=== PATIENT | female | born 1930 | race Caucasian/White ===

== ENCOUNTER 2017-03-18 18:26 | Emergency (ER) | payer MEDICARE, MEDICAID ==
[2017-03-18 19:36] LABS: BASOPHILS 0.8 % (0-2); EOSINOPHILS 2.3 % (0-7); HEMATOCRIT 35.6 % (36.0-48.0); HEMOGLOBIN 12.2 g/dL (12-16); IMMATURE GRANULOCYTES 0.2 % (0-5); LYMPHOCYTES 23.4 % (15-50); MCH 30.7 pg (26.0-34.0); MCHC 34.3 g/dL (31.0-37.0); MCV 89.7 fL (80.0-100.0); MEAN PLATELET VOLUME 9.9 fL (7.4-10.4); MONOCYTES 7.8 % (2-11); NEUTROPHILS 65.5 % (40-80); PLATELET COUNT 200 10x3/uL (130-400); RBC 3.97 10x6/uL (4.00-5.40); WBC 5.1 10x3/uL (4.8-10.8)
[2017-03-18 20:04] LABS: APPEARANCE CLEAR (CLEAR); BILIRUBIN NEGATIVE (NEGATIVE); COLOR YELLOW (YELLOW); GLUCOSE NEGATIVE (NEGATIVE); KETONE NEGATIVE (NEGATIVE); NITRITE NEGATIVE (NEGATIVE); PROTEIN NEGATIVE (NEGATIVE); UROBILINOGEN NORMAL (NORMAL)
[2017-03-18 20:22] LABS: ALKALINE PHOSPHATASE 77 U/L (46-116); ALT (SGPT) 29 U/L (10-68); BILIRUBIN - TOTAL 0.31 mg/dL (0.2-1.3); CALC OSMOLALITY 284 mosm/kg (275-300); CALCIUM 9.4 mg/dL (8.5-10.1); CARBON DIOXIDE 27.2 mmol/L (21.0-32.0); CHLORIDE - SERUM 103 mmol/L (98-107); CREATININE - SERUM 0.9 mg/dL (0.6-1.3); GLUCOSE 101 mg/dL (74-106); POTASSIUM - SERUM 3.7 mmol/L (3.5-5.1); PROTEIN - SERUM 7.8 g/dL (6.4-8.2); SODIUM 142 mmol/L (136-145); UREA NITROGEN 17 mg/dL (7-18); eGFR NON AFRICAN AMERICAN 63 mL/min (90-120)
[2017-03-18 20:37] LABS: CKMB 0.9 U/L (0.0-3.6); CREATINE KINASE 249 UL (21-215); PRO BNP 714 pg/mL (0-450)
[2017-03-18 20:48] LABS: TROPONIN-I < 0.017 ng/mL (0.000-0.060)
== END 2017-03-18 20:38 | disposition home or self-care (01) ==
LOC: D.ER 18:26
PROVIDERS: Family Medicine
DX: R07.89 Other chest pain (principal); G35 Multiple sclerosis; I10 Essential (primary) hypertension; Z85.3 Personal history of malignant neoplasm of breast; I48.92 Unspecified atrial flutter

== ENCOUNTER 2017-03-26 15:57 | Emergency (ER) | payer MEDICARE, MEDICAID | END 2017-03-26 18:29 | disposition home or self-care (01) | LOC: D.ER 15:57 | DX: M25.552 Pain in left hip (principal); I10 Essential (primary) hypertension; G35 Multiple sclerosis; Z85.3 Personal history of malignant neoplasm of breast ==

== ENCOUNTER 2017-03-27 20:10 | Emergency (ER) | payer MEDICARE, MEDICAID ==
[2017-03-27 20:37] LABS: BASOPHILS 0.6 % (0-2); EOSINOPHILS 2.9 % (0-7); HEMATOCRIT 36.6 % (36.0-48.0); HEMOGLOBIN 12.1 g/dL (12-16); IMMATURE GRANULOCYTES 0.3 % (0-5); LYMPHOCYTES 29.8 % (15-50); MCHC 33.1 g/dL (31.0-37.0); MCV 90.6 fL (80.0-100.0); MEAN PLATELET VOLUME 9.9 fL (7.4-10.4); MONOCYTES 14.2 % (2-11); NEUTROPHILS 52.2 % (40-80); PLATELET COUNT 179 10x3/uL (130-400); RBC 4.04 10x6/uL (4.00-5.40); RDW 13.2 % (11.5-14.5); WBC 3.1 10x3/uL (4.8-10.8)
[2017-03-27 20:57] LABS: ALBUMIN 3.9 g/dL (3.4-5.0); ALKALINE PHOSPHATASE 78 U/L (46-116); ALT (SGPT) 35 U/L (10-68); BILIRUBIN - TOTAL 0.26 mg/dL (0.2-1.3); CALC OSMOLALITY 277 mosm/kg (275-300); CALCIUM 9.1 mg/dL (8.5-10.1); CARBON DIOXIDE 27.6 mmol/L (21.0-32.0); CHLORIDE - SERUM 102 mmol/L (98-107); CREATININE - SERUM 0.8 mg/dL (0.6-1.3); GLUCOSE 100 mg/dL (74-106); POTASSIUM - SERUM 3.8 mmol/L (3.5-5.1); PROTEIN - SERUM 7.8 g/dL (6.4-8.2); SODIUM 139 mmol/L (136-145); UREA NITROGEN 13 mg/dL (7-18); eGFR NON AFRICAN AMERICAN 72 mL/min (90-120)
[2017-03-27 21:01] LABS: CHOL - HDL RATIO 6.2 ratio (2.3-4.1); CHOLESTEROL, TOTAL 323 mg/dL (0-200); CKMB 0.7 U/L (0.0-3.6); CREATINE KINASE 239 UL (21-215); HDL CHOLESTEROL 52 mg/dL (32-96); LDL CHOLESTEROL 244 mg/dL (0-100); LDL-HDL RATIO 4.7 ratio (1.5-3.5); TRIGLYCERIDE 136 mg/dL (30-200)
[2017-03-27 21:10] LABS: TROPONIN-I < 0.017 ng/mL (0.000-0.060)
[2017-03-27 21:50] LABS: APPEARANCE CLEAR (CLEAR); BILIRUBIN NEGATIVE (NEGATIVE); COLOR STRAW (YELLOW); GLUCOSE NEGATIVE (NEGATIVE); KETONE NEGATIVE (NEGATIVE); NITRITE NEGATIVE (NEGATIVE); PROTEIN NEGATIVE (NEGATIVE); SPECIFIC GRAVITY 1.005 (1.005-1.020); UROBILINOGEN NORMAL (NORMAL)
[2017-03-27 21:53] LABS: UDS - AMPHET NEGATIVE QUAL (NEGATIVE); UDS - BARB NEGATIVE QUAL (NEGATIVE); UDS - BENZO NEGATIVE QUAL (NEGATIVE); UDS - COCAINE NEGATIVE QUAL (NEGATIVE); UDS - OPIATE NEGATIVE QUAL (NEGATIVE); UDS - PCP NEGATIVE QUAL (NEGATIVE); UDS - THC NEGATIVE QUAL (NEGATIVE)
== END 2017-03-27 22:58 | disposition home or self-care (01) ==
LOC: D.ER 20:10
PROVIDERS: Family Medicine; Physician Assistant
DX: R07.9 Chest pain, unspecified (principal); R05 Cough; R06.2 Wheezing; I10 Essential (primary) hypertension; Z86.79 Personal history of other diseases of the circulatory system; G35 Multiple sclerosis; Z85.3 Personal history of malignant neoplasm of breast

== ENCOUNTER 2017-05-18 05:28 | Emergency (ER) | payer MEDICARE, MEDICAID ==
[2017-05-18 06:03] LABS: BASOPHILS 0.8 % (0-2); EOSINOPHILS 4.7 % (0-7); HEMATOCRIT 35.1 % (36.0-48.0); HEMOGLOBIN 11.9 g/dL (12-16); IMMATURE GRANULOCYTES 0.4 % (0-5); LYMPHOCYTES 36.3 % (15-50); MCH 30.1 pg (26.0-34.0); MCHC 33.9 g/dL (31.0-37.0); MCV 88.9 fL (80.0-100.0); MONOCYTES 8.7 % (2-11); NEUTROPHILS 49.1 % (40-80); PLATELET COUNT 190 10x3/uL (130-400); RBC 3.95 10x6/uL (4.00-5.40); RDW 13.2 % (11.5-14.5); WBC 4.9 10x3/uL (4.8-10.8)
[2017-05-18 06:20] LABS: ALKALINE PHOSPHATASE 67 U/L (46-116); ALT (SGPT) 28 U/L (10-68); CALC OSMOLALITY 279 mosm/kg (275-300); CALCIUM 9.4 mg/dL (8.5-10.1); CHLORIDE - SERUM 102 mmol/L (98-107); CREATININE - SERUM 0.9 mg/dL (0.6-1.3); GLUCOSE 101 mg/dL (74-106); POTASSIUM - SERUM 3.4 mmol/L (3.5-5.1); PROTEIN - SERUM 7.9 g/dL (6.4-8.2); SODIUM 139 mmol/L (136-145); UREA NITROGEN 17 mg/dL (7-18); eGFR NON AFRICAN AMERICAN 63 mL/min (90-120)
[2017-05-18 06:29] LABS: AMYLASE - SERUM 57 U/L (25-115); CKMB 1.3 U/L (0.0-3.6); CREATINE KINASE 222 UL (21-215); LIPASE 90 U/L (73-393)
[2017-05-18 06:30] LABS: TROPONIN-I < 0.017 ng/mL (0.000-0.060)
[2017-05-18 07:17] LABS: APPEARANCE CLEAR (CLEAR); BILIRUBIN NEGATIVE (NEGATIVE); COLOR STRAW (YELLOW); GLUCOSE NEGATIVE (NEGATIVE); KETONE NEGATIVE (NEGATIVE); NITRITE NEGATIVE (NEGATIVE); PROTEIN NEGATIVE (NEGATIVE); SPECIFIC GRAVITY 1.005 (1.005-1.020); UROBILINOGEN NORMAL (NORMAL)
[2017-05-19 11:00] VITALS: BMI 19.8
[2017-05-19] MEDS ORDERED: LOPRESSOR25 MG PO (15:45)
[2017-05-19] MEDS ORDERED: SYNTHROID50 MCG PO (15:45)
[2017-05-19] MEDS ORDERED: XANAX0.25 MG PO (15:46)
[2017-05-19] MEDS ORDERED: PLAVIX75 MG PO (15:46)
[2017-05-19] MEDS ORDERED: LISINOPRIL10 MG PO (15:47)
== END 2017-05-18 09:10 | disposition left against medical advice (07) ==
LOC: D.ER 05:28
PROVIDERS: Family Medicine
DX: N20.2 Calculus of kidney with calculus of ureter (principal); I10 Essential (primary) hypertension; G35 Multiple sclerosis

== ENCOUNTER 2017-05-18 16:48 | Inpatient (IN) | payer MEDICARE, MEDICAID ==
[~2017-05-18] VITALS: Ht 160 cm; Wt 50.7 kg
--- NOTE | ~2017-05-18 | CN ---
PATIENT NAME:ALEN BUENO MEDICAL RECORD: [id number] : 34 LOCATION:. D.2112 ADMIT DATE: 05/18/17 ACCOUNT: [id number] CONSULTING PHYSICIAN: MATT GARSIA MD REFERRING PHYSICIAN: SWAPNIL LEBRON MD DATE OF CONSULTATION: 05/19/2017 CONSULT REQUESTING PHYSICIAN: Dr. Swapnil Lebron. REASON FOR CONSULTATION: Bilateral pulmonary nodule and pneumonia. HISTORY OF PRESENT ILLNESS: Ms. Bueno is an 87-year-old female who has recently moved from [place], [place] to [place]. According to the patient, 4-5 years ago, she was diagnosed with some lung nodule. She underwent lung biopsy at [facility] and according to the patient, it was turned out to be pneumonia, no cancer. Now, she presented to the hospital with uncontrolled blood pressure and generalized weakness. CT scan of her chest showed that she has obstructive ureteric stone on the right with hydronephrosis. She is seen by Dr. Mera. Denies any fever or chill. No night sweats. REVIEW OF SYSTEMS: Mainly in the history of present illness. PAST MEDICAL HISTORY: 1. History of pulmonary nodule 5 years ago, diagnosed in [place] in [place]. 2. History of breast cancer, status post chemoradiation and partial mastectomy. 3. Coronary artery disease with multiple stenting. 4. Anxiety. 5. Hypothyroidism. 6. Hypertension, uncontrolled. ALLERGIES: She is allergic to IODINE, SULFA, AMOXICILLIN, ASPIRIN, BACLOFEN, CIPRO, CODEINE, INDOMETHACIN, LATEX, MORPHINE, PROCAINE, TETANUS, and DIPHTHERIA TOXOID. PERSONAL SOCIAL HISTORY: The patient is a nonsmoker, nondrinker. FAMILY HISTORY: None known. PHYSICAL EXAMINATION: GENERAL: Now, the patient is sitting in bed. She was brought back while the patient was trying to get out from the hospital. VITAL SIGNS: The blood pressure is 156/50, pulse is 56, respirations 16, temperature is 97.9, and SpO2 is 96% on room air. HEENT: Conjunctivae pink. Sclerae nonicteric. NECK: Neck is supple. No JVD. CHEST: The chest excursion is minimal. No basal crackles. No wheezing. HEART: Rhythm regular, normal sound, no murmur. ABDOMEN: Abdomen is soft. Bowel sounds present. No hepatosplenomegaly. RECTAL: Deferred. EXTREMITIES: No cyanosis, no clubbing, and no pedal edema. SKIN: The skin is warm, normal turgor. CENTRAL NERVOUS SYSTEM: The patient is awake and alert. There is no obvious cranial nerve abnormality. The gait is normal. IMAGING: CT scan of the chest on 05/18/2017, there are several spiculated CONSULT REPORT [id number] ALEN BUENO E opacities in the left lung measuring 2.1 cm. There is also ground-glass opacity in the right lung base. There is a 6-mm obstructing right ureteral calculus resulting in hydronephrosis. Borderline precarinal lymph node. IMPRESSION: 1. Multilobar pneumonia, rule out aspiration pneumonia, possible community-acquired pneumonia. 2. Multiple pulmonary nodules, rule out malignant process. According to the patient, she does have a lung biopsy 5 years ago at [place] and she was told that it was not a cancer. 3. Right hydronephrosis. 4. Right obstructive ureteral stone. 5. History of cancer of the breast. 6. Anxiety. RECOMMENDATION: 1. Continue empiric Rocephin and Zithromax. 2. We will get her medical record from [facility] and the patient will need outpatient PET scan. Dr. Lebron, thank you for involving me in the care of Ms. Bueno. TRANSINT:[id number] Voice Confirmation ID: [id number] DOCUMENT ID: [id number] MATT GARSIA MD at 1340 CC: SWAPNIL LEBRON [phone] DICTATION DATE: 05/19/171745 VOCATIONAL TECHNICAL EDUCATION DIRECTOR: 05/19/171919 DIS IN 05/22/17 [facility] [address] [place] [address]
[2017-05-18 17:51] LABS: BASOPHILS 0.4 % (0-2); EOSINOPHILS 2.2 % (0-7); HEMATOCRIT 32.1 % (36.0-48.0); HEMOGLOBIN 10.8 g/dL (12-16); IMMATURE GRANULOCYTES 0.2 % (0-5); LYMPHOCYTES 20.2 % (15-50); MCHC 33.6 g/dL (31.0-37.0); MCV 89.2 fL (80.0-100.0); MONOCYTES 8.4 % (2-11); NEUTROPHILS 68.6 % (40-80); PLATELET COUNT 174 10x3/uL (130-400); RDW 13.2 % (11.5-14.5)
[2017-05-18 18:12] LABS: ALBUMIN 3.7 g/dL (3.4-5.0); ANION GAP 12.7 mmol/L (8-16); BILIRUBIN - TOTAL 0.46 mg/dL (0.2-1.3); CARBON DIOXIDE 27.2 mmol/L (21.0-32.0); CREATININE - SERUM 0.9 mg/dL (0.6-1.3); POTASSIUM - SERUM 3.9 mmol/L (3.5-5.1); PROTEIN - SERUM 7.2 g/dL (6.4-8.2)
[2017-05-19 02:11] VITALS: BP 175/54; BMI 19.8
[2017-05-19 04:00] VITALS: BP 173/65
[2017-05-19 09:15] VITALS: BP 93/33
[2017-05-19 10:44] VITALS: BMI 19.5
[2017-05-19 11:00] VITALS: Ht 160 cm; Wt 50.7 kg
[2017-05-19 11:39] VITALS: BP 156/50
[2017-05-19] MEDS ORDERED: SYNTHROID50 MCG PO (15:45)
[2017-05-19] MEDS ORDERED: LOPRESSOR25 MG PO (15:45)
[2017-05-19] MEDS ORDERED: XANAX0.25 MG PO (15:46)
[2017-05-19] MEDS ORDERED: PLAVIX75 MG PO (15:46)
[2017-05-19] MEDS ORDERED: LISINOPRIL10 MG PO (15:47)
[2017-05-19 16:43] VITALS: BP 176/52
[2017-05-19 20:00] VITALS: BP 162/39
[2017-05-20] VITALS: BP 202/82
[2017-05-20 04:00] VITALS: BP 205/69
[2017-05-20 06:32] LABS: BASOPHILS 0.2 % (0-2); EOSINOPHILS 1.2 % (0-7); HEMATOCRIT 32.4 % (36.0-48.0); IMMATURE GRANULOCYTES 0.7 % (0-5); LYMPHOCYTES 12.7 % (15-50); MCH 29.7 pg (26.0-34.0); MCV 87.6 fL (80.0-100.0); MONOCYTES 4.8 % (2-11); NEUTROPHILS 80.4 % (40-80); PLATELET COUNT 183 10x3/uL (130-400); RDW 12.9 % (11.5-14.5); WBC 4.2 10x3/uL (4.8-10.8)
[2017-05-20 07:09] LABS: ALBUMIN 3.7 g/dL (3.4-5.0); ANION GAP 14.5 mmol/L (8-16); BILIRUBIN - TOTAL 0.5 mg/dL (0.2-1.3); CALCIUM 8.7 mg/dL (8.5-10.1); CARBON DIOXIDE 24.2 mmol/L (21.0-32.0); CREATININE - SERUM 0.9 mg/dL (0.6-1.3); POTASSIUM - SERUM 3.7 mmol/L (3.5-5.1); PROTEIN - SERUM 7.5 g/dL (6.4-8.2)
[2017-05-20 07:30] VITALS: BP 131/71
[2017-05-20 10:30] VITALS: BP 142/48
[2017-05-20 13:03] VITALS: BP 164/65
[2017-05-20 15:43] VITALS: BP 196/73
[2017-05-21 01:18] VITALS: BP 193/68
[2017-05-21 06:37] VITALS: BP 181/63
[2017-05-21 07:23] LABS: BASOPHILS 0 % (0-2); EOSINOPHILS 0 % (0-7); HEMATOCRIT 32.2 % (36.0-48.0); HEMOGLOBIN 11.1 g/dL (12-16); IMMATURE GRANULOCYTES 0.4 % (0-5); LYMPHOCYTES 11.9 % (15-50); MCH 29.4 pg (26.0-34.0); MCHC 34.5 g/dL (31.0-37.0); MCV 85.4 fL (80.0-100.0); MEAN PLATELET VOLUME 10.4 fL (7.4-10.4); MONOCYTES 0.6 % (2-11); NEUTROPHILS 87.1 % (40-80); PLATELET COUNT 187 10x3/uL (130-400); RBC 3.77 10x6/uL (4.00-5.40); RDW 12.7 % (11.5-14.5)
[2017-05-21 07:28] LABS: ALBUMIN 3.8 g/dL (3.4-5.0); ANION GAP 16.3 mmol/L (8-16); BILIRUBIN - TOTAL 0.7 mg/dL (0.2-1.3); CALCIUM 8.4 mg/dL (8.5-10.1); CARBON DIOXIDE 21.3 mmol/L (21.0-32.0); CREATININE - SERUM 0.8 mg/dL (0.6-1.3); POTASSIUM - SERUM 3.6 mmol/L (3.5-5.1); PROTEIN - SERUM 7.4 g/dL (6.4-8.2)
[2017-05-21 08:44] VITALS: BP 175/73
[2017-05-21 11:49] VITALS: BP 188/66
[2017-05-21 19:00] VITALS: BP 181/97
[2017-05-21 23:28] LABS: APPEARANCE CLEAR (CLEAR); BILIRUBIN NEGATIVE (NEGATIVE); COLOR YELLOW (YELLOW); GLUCOSE NEGATIVE (NEGATIVE); KETONE NEGATIVE (NEGATIVE); NITRITE NEGATIVE (NEGATIVE); PROTEIN NEGATIVE (NEGATIVE); UROBILINOGEN NORMAL (NORMAL)
[2017-05-22] VITALS: BP 161/63
[2017-05-22 04:00] VITALS: BP 156/35
[2017-05-22 05:10] LABS: BASOPHILS 0 % (0-2); EOSINOPHILS 0.1 % (0-7); HEMATOCRIT 30.1 % (36.0-48.0); HEMOGLOBIN 10.5 g/dL (12-16); IMMATURE GRANULOCYTES 0.3 % (0-5); LYMPHOCYTES 13.8 % (15-50); MCH 29.7 pg (26.0-34.0); MCHC 34.9 g/dL (31.0-37.0); MEAN PLATELET VOLUME 10.3 fL (7.4-10.4); NEUTROPHILS 77.8 % (40-80); PLATELET COUNT 168 10x3/uL (130-400); RBC 3.54 10x6/uL (4.00-5.40); RDW 12.6 % (11.5-14.5)
[2017-05-22 05:14] LABS: WBC 9.1 10x3/uL (4.8-10.8)
[2017-05-22 05:27] LABS: ALBUMIN 3.5 g/dL (3.4-5.0); BILIRUBIN - TOTAL 0.4 mg/dL (0.2-1.3); CALCIUM 8.1 mg/dL (8.5-10.1); CARBON DIOXIDE 22.8 mmol/L (21.0-32.0); CREATININE - SERUM 0.8 mg/dL (0.6-1.3); POTASSIUM - SERUM 3.8 mmol/L (3.5-5.1); PROTEIN - SERUM 6.8 g/dL (6.4-8.2)
[2017-05-22 08:26] VITALS: BP 173/40
[2017-05-22 11:37] VITALS: BP 155/56
[2017-05-22] MEDS ORDERED: FLOMAX0.4 MG PO (16:13)
[2017-05-26 19:12] LABS: FUNGAL - ASP FLAVUS Negative (Neg:<1:1); FUNGAL - ASP NIGER Negative (Neg:<1:1); FUNGAL - ASPER FUMIGATUS Negative (Neg:<1:1)
== END 2017-05-22 16:25 | disposition home or self-care (01) | DRG 178 ==
LOC: D.ER 16:48 → D.M2 18:02 → D.EDHOLD 18:02 → D.M2 19:42
PROVIDERS: Emergency Medicine; Family Medicine; Internal Medicine Pulmonary Disease
DX: J69.0 Pneumonitis due to inhalation of food and vomit (principal); N13.2 Hydronephrosis with renal and ureteral calculous obstruction; R00.2 Palpitations; I25.10 Atherosclerotic heart disease of native coronary artery without angina pectoris; F41.9 Anxiety disorder, unspecified; E03.9 Hypothyroidism, unspecified; I16.0 Hypertensive urgency

== ENCOUNTER → 2017-06-21 16:15 | Outpatient (CLI) | payer MEDICARE, MEDICAID ==
[2017-05-19 11:00] VITALS: BMI 19.8
[~2017-06-21 16:15] MED LIST: FLOMAX0.4 MG PO; LISINOPRIL10 MG PO; LOPRESSOR25 MG PO; PLAVIX75 MG PO; SYNTHROID50 MCG PO; XANAX0.25 MG PO
== END | disposition home or self-care (01) ==
LOC: D.RAD 16:15
DX: N20.0 Calculus of kidney (principal)

== ENCOUNTER → 2017-07-01 09:59 | Outpatient (CLI) | payer MEDICARE, MEDICAID ==
[2017-05-19 11:00] VITALS: BMI 19.8
== END | disposition home or self-care (01) ==
LOC: D.CT 09:59
DX: N20.9 Urinary calculus, unspecified (principal)

== ENCOUNTER 2017-07-13 16:01 | Emergency (ER) | payer MEDICARE, MEDICAID ==
[2017-05-19 11:00] VITALS: BMI 19.8
== END 2017-07-13 18:20 | disposition home or self-care (01) ==
LOC: D.ER 16:01
DX: L30.1 Dyshidrosis [pompholyx] (principal); I10 Essential (primary) hypertension; Z85.3 Personal history of malignant neoplasm of breast; G35 Multiple sclerosis

== ENCOUNTER 2017-07-31 21:13 | Emergency (ER) | payer MEDICARE, MEDICAID ==
[2017-05-19 11:00] VITALS: BMI 19.8
== END 2017-07-31 22:51 | disposition home or self-care (01) ==
LOC: D.ER 21:13
DX: M79.602 Pain in left arm (principal); S49.92XA Unspecified injury of left shoulder and upper arm, initial encounter; W22.8XXA Striking against or struck by other objects, initial encounter; Y93.89 Activity, other specified; Y92.019 Unspecified place in single-family (private) house as the place of occurrence of the external cause; S40.861A Insect bite (nonvenomous) of right upper arm, initial encounter; I10 Essential (primary) hypertension; G35 Multiple sclerosis

== ENCOUNTER 2017-09-03 15:52 | Emergency (ER) | payer MEDICARE, MEDICAID ==
[~2017-09-03] VITALS: Ht 160 cm; Wt 50.0 kg
[2017-09-03 16:05] VITALS: Ht 160 cm; Wt 50.0 kg
[2017-09-03 16:23] VITALS: BP 205/84
[2017-09-04] MEDS ORDERED: ACETAMINOPHEN500 M1 PO (04:01)
[2017-09-04] MEDS ORDERED: CYCLOBENZAPRINE10 MG PO (04:01)
[2017-09-04] MEDS ORDERED: ZPAK PO (06:41)
[2017-09-04] MEDS ORDERED: OMNICEF300 MG PO (06:41)
== END 2017-09-03 16:40 | disposition left against medical advice (07) ==
LOC: D.ER 15:52
DX: M79.1 Myalgia (principal)

== ENCOUNTER 2017-09-04 03:25 | Emergency (ER) | payer MEDICARE, MEDICAID ==
[~2017-09-04] VITALS: Ht 160 cm; Wt 504.5 kg
[2017-09-04 03:25] VITALS: Ht 160 cm; Wt 504.5 kg
[2017-09-04] MEDS ORDERED: CYCLOBENZAPRINE10 MG PO (04:01)
[2017-09-04] MEDS ORDERED: ACETAMINOPHEN500 M1 PO (04:01)
[2017-09-04 04:28] VITALS: BP 172/84
[2017-09-04 05:13] LABS: BASOPHILS 0.5 % (0-2); EOSINOPHILS 4.5 % (0-7); HEMATOCRIT 36.7 % (36.0-48.0); HEMOGLOBIN 12.7 g/dL (12-16); IMMATURE GRANULOCYTES 0.2 % (0-5); LYMPHOCYTES 38.9 % (15-50); MCH 30.3 pg (26.0-34.0); MCHC 34.6 g/dL (31.0-37.0); MCV 87.6 fL (80.0-100.0); MEAN PLATELET VOLUME 9.6 fL (7.4-10.4); MONOCYTES 8.2 % (2-11); NEUTROPHILS 47.7 % (40-80); RBC 4.19 10x6/uL (4.00-5.40); RDW 13.1 % (11.5-14.5); WBC 5.5 10x3/uL (4.8-10.8)
[2017-09-04 05:18] LABS: PLATELET COUNT 202 10x3/uL (130-400)
[2017-09-04 05:24] LABS: INR 0.93 (0.85-1.17); PROTIME 12.1 SECONDS (11.6-15.0)
[2017-09-04 05:34] LABS: ALKALINE PHOSPHATASE 69 U/L (46-116); ALT (SGPT) 20 U/L (10-68); CALC OSMOLALITY 277 mosm/kg (275-300); CALCIUM 9.2 mg/dL (8.5-10.1); CARBON DIOXIDE 29.7 mmol/L (21.0-32.0); CHLORIDE - SERUM 105 mmol/L (98-107); CREATININE - SERUM 0.9 mg/dL (0.6-1.3); GLUCOSE 93 mg/dL (74-106); POTASSIUM - SERUM 3.6 mmol/L (3.5-5.1); PROTEIN - SERUM 7.8 g/dL (6.4-8.2); SODIUM 140 mmol/L (136-145); UREA NITROGEN 10 mg/dL (7-18); eGFR NON AFRICAN AMERICAN 63 mL/min (90-120)
[2017-09-04 05:35] LABS: TROPONIN-I < 0.017 ng/mL (0.000-0.060)
[2017-09-04 06:20] LABS: APPEARANCE CLEAR (CLEAR); BILIRUBIN NEGATIVE (NEGATIVE); COLOR YELLOW (YELLOW); GLUCOSE NEGATIVE (NEGATIVE); KETONE NEGATIVE (NEGATIVE); NITRITE NEGATIVE (NEGATIVE); PROTEIN NEGATIVE (NEGATIVE); UROBILINOGEN NORMAL (NORMAL)
[2017-09-04] MEDS ORDERED: ZPAK PO (06:41)
[2017-09-04] MEDS ORDERED: OMNICEF300 MG PO (06:41)
== END 2017-09-04 07:20 | disposition home or self-care (01) ==
LOC: D.ER 03:25
PROVIDERS: Family Medicine
DX: M79.1 Myalgia (principal)

== ENCOUNTER 2017-10-20 21:52 | Emergency (ER) | payer MEDICARE, MEDICAID ==
[~2017-10-20] VITALS: Ht 160 cm; Wt 61.4 kg
[~2017-10-20 21:52] MED LIST changes: +ACETAMINOPHEN500 M1 PO; +CYCLOBENZAPRINE10 MG PO; +OMNICEF300 MG PO; +ZPAK PO
[2017-10-20 21:57] VITALS: BP 231/120; Ht 160 cm; Wt 61.4 kg
== END 2017-10-20 23:18 ==
LOC: D.ER 21:52
DX: S50.311A Abrasion of right elbow, initial encounter (principal); S90.511A Abrasion, right ankle, initial encounter; W01.0XXA Fall on same level from slipping, tripping and stumbling without subsequent striking against object, initial encounter; Y93.K1 Activity, walking an animal; Y92.410 Unspecified street and highway as the place of occurrence of the external cause; S16.1XXA Strain of muscle, fascia and tendon at neck level, initial encounter; S09.90XA Unspecified injury of head, initial encounter; E07.9 Disorder of thyroid, unspecified; I10 Essential (primary) hypertension; I25.10 Atherosclerotic heart disease of native coronary artery without angina pectoris; G35 Multiple sclerosis

== ENCOUNTER 2017-10-23 00:01 | Emergency (ER) | payer MEDICARE ==
[~2017-10-23] VITALS: Ht 160 cm; Wt 50.5 kg
[2017-10-23 00:02] VITALS: Ht 160 cm; Wt 50.5 kg
[2017-10-23 02:20] VITALS: BP 123/79
== END 2017-10-23 02:20 | disposition home or self-care (01) ==
LOC: D.ER 00:01
DX: R51 Headache (principal); M54.2 Cervicalgia; M54.6 Pain in thoracic spine; E07.9 Disorder of thyroid, unspecified; I10 Essential (primary) hypertension; I25.10 Atherosclerotic heart disease of native coronary artery without angina pectoris; W18.30XA Fall on same level, unspecified, initial encounter; Y93.89 Activity, other specified; Y92.019 Unspecified place in single-family (private) house as the place of occurrence of the external cause

== ENCOUNTER 2017-12-18 03:33 | Emergency (ER) | payer MEDICARE ==
[~2017-12-18] VITALS: Ht 160 cm; Wt 53.2 kg
[2017-12-18 03:37] VITALS: Ht 160 cm; Wt 53.2 kg
[2017-12-18 04:22] VITALS: BP 178/84
== END 2017-12-18 04:23 | disposition home or self-care (01) ==
LOC: D.ER 03:33
DX: S60.465A Insect bite (nonvenomous) of left ring finger, initial encounter (principal); W57.XXXA Bitten or stung by nonvenomous insect and other nonvenomous arthropods, initial encounter; Y93.89 Activity, other specified; Y92.019 Unspecified place in single-family (private) house as the place of occurrence of the external cause; I10 Essential (primary) hypertension; G35 Multiple sclerosis; I25.10 Atherosclerotic heart disease of native coronary artery without angina pectoris

== ENCOUNTER 2018-01-27 13:41 | Emergency (ER) | payer MEDICARE ==
[~2018-01-27] VITALS: Ht 160 cm; Wt 53.2 kg
[2018-01-27 13:51] VITALS: Ht 160 cm; Wt 53.2 kg
[2018-01-27 14:56] LABS: BASOPHILS 0.5 % (0-2); EOSINOPHILS 1.6 % (0-7); HEMATOCRIT 37.9 % (36.0-48.0); HEMOGLOBIN 13.1 g/dL (12-16); IMMATURE GRANULOCYTES 0.5 % (0-5); LYMPHOCYTES 19.5 % (15-50); MCH 30.4 pg (26.0-34.0); MCHC 34.6 g/dL (31.0-37.0); MCV 87.9 fL (80.0-100.0); MEAN PLATELET VOLUME 9.6 fL (7.4-10.4); MONOCYTES 6.2 % (2-11); NEUTROPHILS 71.7 % (40-80); PLATELET COUNT 214 10x3/uL (130-400); RBC 4.31 10x6/uL (4.00-5.40); RDW 12.9 % (11.5-14.5); WBC 6.3 10x3/uL (4.8-10.8)
[2018-01-27 15:13] LABS: INR 0.91 (0.85-1.17)
[2018-01-27 15:14] LABS: APTT 29.5 SECONDS (22.8-39.4)
[2018-01-27 15:19] LABS: ALKALINE PHOSPHATASE 73 U/L (46-116); ALT (SGPT) 18 U/L (10-68); BILIRUBIN - TOTAL 0.42 mg/dL (0.2-1.3); CALC OSMOLALITY 276 mosm/kg (275-300); CALCIUM 9.4 mg/dL (8.5-10.1); CARBON DIOXIDE 27.5 mmol/L (21.0-32.0); CHLORIDE - SERUM 104 mmol/L (98-107); CREATININE - SERUM 0.8 mg/dL (0.6-1.3); GLUCOSE 102 mg/dL (74-106); POTASSIUM - SERUM 3.8 mmol/L (3.5-5.1); PROTEIN - SERUM 7.9 g/dL (6.4-8.2); SODIUM 139 mmol/L (136-145); UREA NITROGEN 9 mg/dL (7-18); eGFR NON AFRICAN AMERICAN 72 mL/min (90-120)
[2018-01-27 15:34] LABS: CKMB 0.8 U/L (0.0-3.6); CREATINE KINASE 106 UL (21-215); MAGNESIUM - SERUM 2.2 mg/dL (1.8-2.4)
[2018-01-27 15:37] LABS: TROPONIN-I < 0.017 ng/mL (0.000-0.060)
[2018-01-27 16:33] VITALS: BP 208/112
== END 2018-01-27 18:28 | disposition home or self-care (01) ==
LOC: D.ER 13:41
PROVIDERS: Family Medicine
DX: R53.83 Other fatigue (principal); F41.9 Anxiety disorder, unspecified; I10 Essential (primary) hypertension; F41.0 Panic disorder [episodic paroxysmal anxiety]; M79.604 Pain in right leg; R00.2 Palpitations

== ENCOUNTER 2018-02-19 16:35 | Emergency (ER) | payer MEDICARE | END 2018-02-19 17:51 | disposition home or self-care (01) | LOC: D.ER 16:35 | DX: B02.29 Other postherpetic nervous system involvement (principal); Z86.19 Personal history of other infectious and parasitic diseases ==

== ENCOUNTER 2018-03-19 17:37 | Emergency (ER) | payer MEDICARE ==
[~2018-03-19] VITALS: Ht 160 cm; Wt 45.5 kg
[~2018-03-19 17:37] MED LIST changes: +PREDNISONE20 MG PO; +ZOVIRAX800 MG PO
[2018-03-19 17:45] VITALS: Ht 160 cm; Wt 45.5 kg
[2018-03-19 18:06] LABS: APPEARANCE CLEAR (CLEAR); BILIRUBIN NEGATIVE (NEGATIVE); COLOR STRAW (YELLOW); GLUCOSE NEGATIVE (NEGATIVE); KETONE NEGATIVE (NEGATIVE); NITRITE NEGATIVE (NEGATIVE); PROTEIN NEGATIVE (NEGATIVE); SPECIFIC GRAVITY 1.005 (1.005-1.020); UROBILINOGEN NORMAL (NORMAL)
[2018-03-19 18:35] LABS: BASOPHILS 0.4 % (0-2); EOSINOPHILS 3.6 % (0-7); HEMATOCRIT 32.2 % (36.0-48.0); HEMOGLOBIN 10.9 g/dL (12-16); IMMATURE GRANULOCYTES 0.4 % (0-5); LYMPHOCYTES 29.5 % (15-50); MCH 30.8 pg (26.0-34.0); MCHC 33.9 g/dL (31.0-37.0); MEAN PLATELET VOLUME 10.2 fL (7.4-10.4); MONOCYTES 9.3 % (2-11); NEUTROPHILS 56.8 % (40-80); RBC 3.54 10x6/uL (4.00-5.40); RDW 14.3 % (11.5-14.5); WBC 4.8 10x3/uL (4.8-10.8)
[2018-03-19 18:36] LABS: PLATELET COUNT 278 10x3/uL (130-400)
[2018-03-19 18:56] LABS: ALBUMIN 3.1 g/dL (3.4-5.0); ANION GAP 13.1 mmol/L (8-16); BILIRUBIN - TOTAL 0.74 mg/dL (0.2-1.3); CALCIUM 8.7 mg/dL (8.5-10.1); CARBON DIOXIDE 26.8 mmol/L (21.0-32.0); CREATININE - SERUM 0.8 mg/dL (0.6-1.3); PROTEIN - SERUM 6.8 g/dL (6.4-8.2)
[2018-03-19 19:00] LABS: POTASSIUM - SERUM 2.9 mmol/L (3.5-5.1)
[2018-03-19 22:33] VITALS: BP 188/92
== END 2018-03-19 22:33 | disposition home or self-care (01) ==
LOC: D.ER 17:37
PROVIDERS: Family Medicine
DX: E87.6 Hypokalemia (principal)

== ENCOUNTER 2018-05-27 21:33 | Emergency (ER) | payer MEDICARE ==
[~2018-05-27] VITALS: Ht 160 cm; Wt 47.6 kg
[2018-05-27 21:38] VITALS: Ht 160 cm; Wt 47.6 kg
[2018-05-27 22:30] LABS: BASOPHILS 0.7 % (0-2); EOSINOPHILS 4.1 % (0-7); HEMATOCRIT 31.4 % (36.0-48.0); HEMOGLOBIN 10.8 g/dL (12-16); IMMATURE GRANULOCYTES 0.3 % (0-5); LYMPHOCYTES 29.3 % (15-50); MCH 30.5 pg (26.0-34.0); MCHC 34.4 g/dL (31.0-37.0); MCV 88.7 fL (80.0-100.0); MEAN PLATELET VOLUME 9.7 fL (7.4-10.4); MONOCYTES 10.4 % (2-11); NEUTROPHILS 55.2 % (40-80); RBC 3.54 10x6/uL (4.00-5.40); RDW 13.1 % (11.5-14.5); WBC 6.2 10x3/uL (4.8-10.8)
[2018-05-27 22:32] LABS: PLATELET COUNT 205 10x3/uL (130-400)
[2018-05-27] MEDS ORDERED: NEURONTIN 300300 MG PO (22:53)
[2018-05-27 22:54] LABS: ALBUMIN 3.6 g/dL (3.4-5.0); ANION GAP 8.7 mmol/L (8-16); BILIRUBIN - TOTAL 0.49 mg/dL (0.2-1.3); CALCIUM 8.6 mg/dL (8.5-10.1); CREATININE - SERUM 0.8 mg/dL (0.6-1.3)
[2018-05-27 22:55] LABS: POTASSIUM - SERUM 2.7 mmol/L (3.5-5.1)
[2018-05-27 23:23] LABS: ERYTHROCYTE SEDIMENTATION RATE 19 mm/hr (0-42)
[2018-05-27 23:34] VITALS: BP 190/89
== END 2018-05-27 23:35 | disposition home or self-care (01) ==
LOC: D.ER 21:33
PROVIDERS: Family Medicine
DX: H57.11 Ocular pain, right eye (principal); Z86.19 Personal history of other infectious and parasitic diseases; I10 Essential (primary) hypertension; B02.29 Other postherpetic nervous system involvement; R51 Headache; R63.4 Abnormal weight loss

== ENCOUNTER 2018-05-30 00:28 | Observation (INO) | payer MEDICARE ==
[~2018-05-30] VITALS: Ht 160 cm; Wt 47.2 kg
[2018-05-30] VITALS (9 sets, daily range): BP systolic 131–185; BP diastolic 51–88; Ht 160 cm; Wt 47.2 kg
[~2018-05-30 00:28] MED LIST changes: +NEURONTIN 300300 MG PO
[2018-05-30 01:23] LABS: BASOPHILS 0.7 % (0-2); EOSINOPHILS 3.5 % (0-7); HEMATOCRIT 34.1 % (36.0-48.0); IMMATURE GRANULOCYTES 0.4 % (0-5); LYMPHOCYTES 23.1 % (15-50); MCH 30.9 pg (26.0-34.0); MCHC 35.2 g/dL (31.0-37.0); MCV 87.9 fL (80.0-100.0); MEAN PLATELET VOLUME 9.8 fL (7.4-10.4); MONOCYTES 9.4 % (2-11); NEUTROPHILS 62.9 % (40-80); PLATELET COUNT 205 10x3/uL (130-400); RBC 3.88 10x6/uL (4.00-5.40); WBC 5.5 10x3/uL (4.8-10.8)
[2018-05-30 01:25] LABS: APPEARANCE CLEAR (CLEAR); BILIRUBIN NEGATIVE (NEGATIVE); COLOR STRAW (YELLOW); GLUCOSE NEGATIVE (NEGATIVE); KETONE NEGATIVE (NEGATIVE); NITRITE NEGATIVE (NEGATIVE); PROTEIN TRACE mg/dL (NEGATIVE); SPECIFIC GRAVITY 1.005 (1.005-1.020); UROBILINOGEN NORMAL (NORMAL)
[2018-05-30 01:27] LABS: APTT 29.6 SECONDS (22.8-39.4); INR 0.94 (0.85-1.17); PROTIME 12.1 SECONDS (11.6-15.0)
[2018-05-30 01:40] LABS: ALBUMIN 3.7 g/dL (3.4-5.0); ALKALINE PHOSPHATASE 81 U/L (46-116); ALT (SGPT) 27 U/L (10-68); BILIRUBIN - TOTAL 0.38 mg/dL (0.2-1.3); CALC OSMOLALITY 290 mosm/kg (275-300); CALCIUM 8.9 mg/dL (8.5-10.1); CARBON DIOXIDE 29.2 mmol/L (21.0-32.0); CHLORIDE - SERUM 105 mmol/L (98-107); CKMB 1.1 U/L (0.0-3.6); CREATINE KINASE 85 UL (21-215); CREATININE - SERUM 0.8 mg/dL (0.6-1.3); GLUCOSE 115 mg/dL (74-106); POTASSIUM - SERUM 2.7 mmol/L (3.5-5.1); PROTEIN - SERUM 7.7 g/dL (6.4-8.2); SODIUM 145 mmol/L (136-145); TROPONIN-I 0.017 ng/mL (0.000-0.060); UREA NITROGEN 14 mg/dL (7-18); eGFR NON AFRICAN AMERICAN 72 mL/min (90-120)
--- NOTE | 2018-05-30 01:50 | NUR ---
PATIENT PLACED ON BEDPAN FOR THE 4TH TIME SINCE ARRIVING TO THE ED. STATES SHE DOES NOT NORMALLY URINATE THIS MUCH.
--- NOTE | 2018-05-30 02:15 | NUR ---
PATIENT IS AWAKE AND ALERT, COLOR WNL FOR RAC. RESPIRATIONS EVEN AND UNLABORED. C/O NAUSEA, HOWEVER SHE REFUSES MEDICATION AT THIS TIME. WILL REASESS. PATIENT GIVEN 4 WARM BLANKETS FOR COMFORT. AND ASSISTED TO BEDPAN.
--- NOTE | 2018-05-30 02:45 | NUR ---
PATIENT ASSISTED WITH BEDPAN. NO OTHER NEEDS NOTED. WILL CONTINUE TO MONITOR.
--- NOTE | 2018-05-30 02:58 | NUR ---
PATIENT C/O NAUSEA AND AGREES TO TAKE NAUSEA MEDICATION ORDERED. NO OTHER NEEDS NOTED. WILL CONTINUE TO MONITOR.
--- NOTE | 2018-05-30 03:15 | NUR ---
PATIENT ASSISTED WITH BEDPAN. NO OTHER NEEDS NOTED. REPORTS A DECREASE IN NAUSEA.
--- NOTE | 2018-05-30 04:01 | NUR ---
ONLY ONE POTASSUM RIDER GIVEN @ 0300 THE OTHER WAS NOT GIVEN. THE SECOND DOSE WAS TAKEN WITH PATIENT TO THE UNIT BUT NOT HANGING.
--- NOTE | 2018-05-30 04:35 | NUR ---
REC'D TO ROOM 2237 FROM ER DEPT PER STRETCHER WITH DX. FALL AT HOME COTUSIO TO LEFT HEAD. MULTIPLE ALLERGIES. IV PATENT RT WRIST K+RIDER HANGING AT 100CC'S/HR. PT C/O PAIN AT IV SITE. ASSESSMENT PER ADMIT PACKET, JO HUNG TO HELP DILUTE K+ RIDER. K+ RIDER #1 COMPLETE HUNG 2ND k+ RIDER. NO TELEMETRY AVAILABLE. HX SHINGLES RT EYE STATES WAS THERE FOR 6 MONTHS.
--- NOTE | 2018-05-30 06:00 | NUR ---
EYES CLOSED RESPIRATIONS WITH EASE AND UNLABORED.
--- NOTE | 2018-05-30 07:35 | NUR ---
PT RESTING IN BED, EYES CLOSED. NO C/O PAIN. NO S/S OF ACUTE DISTRESS NOTED. IV TO RIGHT FOREARM, SL. SITE PATENT WITHOUT REDNESS OR SWELLING. PT DENIES ANYTHING FURTHER AT THIS TIME. CALL LIGHT IN REACH. WILL CONTINUE TO MONITOR.
[2018-05-30 10:07] LABS: BASOPHILS 0.3 % (0-2); EOSINOPHILS 0.1 % (0-7); HEMATOCRIT 30.8 % (36.0-48.0); HEMOGLOBIN 10.6 g/dL (12-16); IMMATURE GRANULOCYTES 0.3 % (0-5); LYMPHOCYTES 15.7 % (15-50); MCH 30.3 pg (26.0-34.0); MCHC 34.4 g/dL (31.0-37.0); MEAN PLATELET VOLUME 9.5 fL (7.4-10.4); NEUTROPHILS 76.6 % (40-80); PLATELET COUNT 200 10x3/uL (130-400); RDW 13.2 % (11.5-14.5); WBC 7.6 10x3/uL (4.8-10.8)
[2018-05-30 10:57] LABS: ANION GAP 13.8 mmol/L (8-16); CALCIUM 8.6 mg/dL (8.5-10.1); CARBON DIOXIDE 27.1 mmol/L (21.0-32.0); CREATININE - SERUM 0.8 mg/dL (0.6-1.3); MAGNESIUM - SERUM 1.9 mg/dL (1.8-2.4)
[2018-05-30 10:59] LABS: POTASSIUM - SERUM 2.9 mmol/L (3.5-5.1)
--- NOTE | 2018-05-30 15:29 | MORECARE ---
CASE MANAGEMENT DISCHARGE SUMMARY PATIENT: ALEN BEUNO UNIT: [id number] ADM DATE: 05/30/18 AGE: 88 : 32 SEX: F ROOM/BED: D.2237 AUTHOR: SHANNONDOC PHYSICIAN: REFERRING PHYSICIAN: ARABELLA GERONIMO MD DATE OF SERVICE: 05/30/18 Discharge Plan Patient Name: ALEN BUENO Facility: [facility]:[place] : 1930 Planned Disposition: Home with Home Health Anticipated Discharge Date: Discharge Date: Expected LOS: Initial Reviewer: [email or web address] Initial Review Date: 05/30/2018 Generated: 05/30/18 4:29 pm Comments DCP- Discharge Planning Updated by [email or web address]: Stefania Bull on 05/30/18 2:[address] Patient Name: ALEN BUENO Admission Status: ER Accout number: [id number] Admission Date: 05-30-2018 : 1930 Admission Diagnosis: Attending: ARABELLA GERONIMO Current LOS: 1 Anticipated DC Date: Planned Disposition: Home with Home Health Primary Insurance: MEDICARE A & B Discharge Planning Comments: CM met with patient to complete initial dc planning assessment. CM educated patient on the CM role and verbal consent given by patient to complete assessment. Patient lives at home alone. At discharge patient plans to return and feels this is a safe discharge. CM discussed availability of home health, rehab services, and medical equipment. Patient denied known discharge needs at this time. States she has just gotten private duty care from [facility] and will call them when she returns home. States she will need transportation to get home and does not have any money for a taxi. CM will continue to follow and will assist as needed with dc plans/needs. Through Operator: Stefania Bull DCPIA - Discharge Planning Initial Assessment Updated by [email or web address]: Stefania Bull on 05/30/18 3:27 pm * Is the patient Alert and Oriented? Yes * How many steps to enter\exit or inside your home? 0/0 * PCP Dr. Moore * [facility]acy [facility] [place] * Preadmission Environment Home Alone * ADLs Independent * Equipment None * List name and contact numbers for known caregivers / representatives who currently or will assist patient after discharge: Carolina henriquez - [phone] Judy henriquez - [phone] * Verbal permission to speak to the caregivers and representatives has been obtained from the patient. Yes * Community resources currently utilized Private Duty Care * Please name any agencies selected above. [facility] * Additional services required to return to the preadmission environment? No * Can the patient safely return to the preadmission environment? Yes * Has this patient been hospitalized within the prior 30 days at any hospital? No Coverage Notice Reviewer: [email or web address] Cameron Bull Notice Issued Date-Time: 05/30/2018 15:24 Notice Type: Medicare Outpatient Observation Notice Notice Delivered To: Patient Relationship to Patient: Self Machine Assistant Name: Delivery Method: HAND - Hand Delivered Afia Days: Prior Verbal Notification: Recipient Understood Notice: Yes Recipient Signature: Yes Med Rec Note Co-signed by Attending: Coverage Notice Comment: CARLOS explained, signed, given, copy placed in MR Patient Name: ALEN BUENO Page [phone] at 1529 All edits/amendments must be made on the electronic document DICTATION DATE: 05/30/18 1529 KICKING MACHINE OPERATOR: OZZIE 05/30/18 1529 RPT#: [id number] DC DATE: STATUS: ADM IN [facility] [address] [place] [address] END OF REPORT
--- NOTE | 2018-05-30 17:47 | NUR ---
I have reviewed this patient and I concur with the Shift Assessment completed by the Licensed Practical Nurse today this shift.
--- NOTE | 2018-05-30 18:44 | NUR ---
PT SITTING UP ON THE SIDE OF THE BED. NO C/O PAIN. NO S/S OF ACUTE DISTRESS NOTED. PT DENIES ANYTHING FURTHER AT THIS TIME. CALL LIGHT IN REACH. WILL CONTINUE TO MONITOR.
--- NOTE | 2018-05-30 20:00 | NUR ---
ASSESSMENT PER FLOWSHEET. SR UP X2 CALL LIGHT WITHIN REACH IV PATENT RT WRIST WITH NS AT 10CC'S/HR. DENIES NEEDS.
--- NOTE | 2018-05-30 22:00 | NUR ---
MEDS GIVEN PER MAR. PATIENT VERY ARGUMENTIVE ABOUT MEDS STATES TAKES 50MG OF LOPRESSOR AT BEDTIME TRIED TO EXPLAIN TO PATIENT THAT OUT PHARMACY CARRIES 25MG AND HER DOSE IS 50MG PO WHICH MEANS SHE NEEDS TWO TABLETS OF 25MG TO EQUEAL HER DOSE.
[2018-05-31] VITALS: BP 148/80
--- NOTE | 2018-05-31 | NUR ---
PAMELA AWAKE AND HAS TAGLED UP HER CALL LIGHT WITHIN HER IV LINE. DISCONNECTED IV NO ORDERS FOR IV FLUIDS AND SALINE LOCKED IV.
--- NOTE | 2018-05-31 03:45 | NUR ---
RESTING QUIETLY RESPIRATIONS WITH EASE AND UNLABORED
[2018-05-31 04:00] VITALS: BP 138/80; BP 154/80
[2018-05-31 05:16] LABS: BASOPHILS 0.3 % (0-2); HEMATOCRIT 32.1 % (36.0-48.0); HEMOGLOBIN 10.8 g/dL (12-16); IMMATURE GRANULOCYTES 0.4 % (0-5); LYMPHOCYTES 17.3 % (15-50); MCH 30.3 pg (26.0-34.0); MCHC 33.6 g/dL (31.0-37.0); MCV 89.9 fL (80.0-100.0); MEAN PLATELET VOLUME 10.1 fL (7.4-10.4); MONOCYTES 6.2 % (2-11); NEUTROPHILS 74.8 % (40-80); RBC 3.57 10x6/uL (4.00-5.40); RDW 13.5 % (11.5-14.5); WBC 9.4 10x3/uL (4.8-10.8)
[2018-05-31 05:20] LABS: ALBUMIN 3.4 g/dL (3.4-5.0); ANION GAP 13.3 mmol/L (8-16); BILIRUBIN - TOTAL 0.87 mg/dL (0.2-1.3); CALCIUM 8.7 mg/dL (8.5-10.1); CREATININE - SERUM 0.9 mg/dL (0.6-1.3); PLATELET COUNT 242 10x3/uL (130-400); PROTEIN - SERUM 7.1 g/dL (6.4-8.2)
[2018-05-31 05:23] LABS: POTASSIUM - SERUM 4.3 mmol/L (3.5-5.1)
--- NOTE | 2018-05-31 07:27 | NUR ---
PT IS RESTING IN BED WITH EYES CLOSED. RESPIRATIONS ARE EVEN AND UNLABORED. PT IS EASILY AROUSED WITH VERBAL STIMULATION. PT DENIES PAIN, EXCEPT "WHERE I HAVE MY SHINGLES IN MY EYE AND ON THE RIGHT SIDE OF MY FACE". PT REPORTS THAT SHE HAS HAD SHINGLES "FOR 5 MONTHS". PT DENIES PRESENCE OF N/V. PT DENIES NEEDS. BED IS IN THE LOWEST POSITION. CALL LIGHT AND BEDSIDE TABLE ARE WITHIN REACH. WILL CONT TO MONITOR.
[2018-05-31 08:50] VITALS: BP 154/73
--- NOTE | 2018-05-31 10:53 | MORECARE ---
CASE MANAGEMENT DISCHARGE SUMMARY PATIENT: ALEN BUENO UNIT: [id number] ADM DATE: 05/30/18 AGE: 88 : 32 SEX: F ROOM/BED: D.2237 AUTHOR: JAMES ORTEGA PHYSICIAN: REFERRING PHYSICIAN: ARABELLA GERONIMO MD DATE OF SERVICE: 05/31/18 Discharge Plan Patient Name: ALEN BUENO Facility: [facility]:[place] : 1930 Planned Disposition: Home with Home Health Anticipated Discharge Date: Discharge Date: Expected LOS: Initial Reviewer: [email or web address] Initial Review Date: 05/30/2018 Generated: 05/31/18 11:53 am Comments DCP- Discharge Planning Updated by [id number]: Stefania Bull on 05/31/18 9:[address] Received orders for discharge. I met with her and informed her the doctor would like her to have Home health. She agrees with home health and a GERSON form signed for [place]. I called Rina with [facility] and clinical faxed to them. She states she will need a taxi. States her 2 nieces are working and can not take her home. I offered to call the nieces and she states she does not want me to call them. I called and spoke to Bessie Sherice and she received approval for Taxi from [employer]. Taxi service states it will be 70 dollars. Home today with [facility]. DCP- Discharge Planning Updated by [email or web address]: Stefania Bull on 05/30/18 2:[address] Patient Name: ALEN BUENO Admission Status: ER Accout number: [id number] Admission Date: 05-30-2018 : 1930 Admission Diagnosis: Attending: ARABELLA GERONIMO Current LOS: 1 Anticipated DC Date: Planned Disposition: Home with Home Health Primary Insurance: MEDICARE A & B Discharge Planning Comments: CM met with patient to complete initial dc planning assessment. CM educated patient on the CM role and verbal consent given by patient to complete assessment. Patient lives at home alone. At discharge patient plans to return and feels this is a safe discharge. CM discussed availability of home health, rehab services, and medical equipment. Patient denied known discharge needs at this time. States she has just gotten private duty care from [facility] [email or web address] and will call them when she returns home. States she will need transportation to get home and does not have any money for a taxi. CM will continue to follow and will assist as needed with dc plans/needs. Desk Sergeant: Stefania Evangelistacaroline DCPIA - Discharge Planning Initial Assessment Updated by [email or web address]: Stefania Evangelistacaroline on 05/30/18 3:27 pm * Is the patient Alert and Oriented? Yes * How many steps to enter\exit or inside your home? 0/0 * PCP Dr. Moore * [facility]acy [facility] [place] * Preadmission Environment Home Alone * ADLs Independent * Equipment None * List name and contact numbers for known caregivers / representatives who currently or will assist patient after discharge: Carolina Dheeraj henriquez - [phone] Judy Dheeraj henriquez - [phone] * Verbal permission to speak to the caregivers and representatives has been obtained from the patient. Yes * Community resources currently utilized Private Duty Care * Please name any agencies selected above. [facility] [email or web address] * Additional services required to return to the preadmission environment? No * Can the patient safely return to the preadmission environment? Yes * Has this patient been hospitalized within the prior 30 days at any hospital? No External Providers External Provider: [facility] Next Contact Date: Service Request Date: Service Type: Resolution: Reviewer: Comments: Coverage Notice Reviewer: [id number] - Stefania Bull Notice Issued Date-Time: 05/30/2018 15:24 Notice Type: Medicare Outpatient Observation Notice Notice Delivered To: Patient Relationship to Patient: Self Deputy Attorney General Name: Delivery Method: HAND - Hand Delivered Afia Days: Prior Verbal Notification: Recipient Understood Notice: Yes Recipient Signature: Yes Med Rec Note Co-signed by Attending: Coverage Notice Comment: TERRANCE explained, signed, given, copy placed in MR Last DP export: 05/30/18 2:29 p Patient Name: ALEN BUENO Page [id number] at 1053 All edits/amendments must be made on the electronic document DICTATION DATE: 05/31/18 105 SENIOR MATERIALS SCIENTIST: OZZIE 05/31/18 105 RPT#: [id number] DC DATE: STATUS: ADM IN [facility] [address] [place] [address] END OF REPORT
--- NOTE | 2018-05-31 12:00 | NUR ---
ALL DISCHARGE INSTRUCTIONS COVERED. ALL DISCHARGE QUESTIONS ANSWERED. PT DENIES ANY CONCERNS AND/OR QUESTIONS. ALL DISCHARGE PAPERS SIGNED. SIGNED DISCHARGE PAPERS PLACED IN PT CHART. PIV REMOVED FROM RIGHT WRIST WITH CATHETER TIP INTACT. DRESSING APPLIED.
--- NOTE | 2018-05-31 12:34 | NUR ---
[facility] [employer] NOTIFIED OF NEED FOR PT TRANSPORT TO DESTINATION. WILL AWAIT FOR TAXI ARRIVAL.
--- NOTE | 2018-05-31 13:06 | NUR ---
PT TRANSPORTED FROM ROOM TO TRANSPORTATION HOME VIA WHEELCHAIR. PT STATES THAT SHE DOES HAVE ALL PERSONAL BELONGINGS. PT DENIES FURTHER NEEDS/QUESTIONS/CONCERNS AT THIS TIME.
--- NOTE | 2018-05-31 14:53 | MORECARE ---
CASE MANAGEMENT DISCHARGE SUMMARY PATIENT: ALEN BUENO UNIT: [id number] ADM DATE: 05/30/18 AGE: 88 : 32 SEX: F ROOM/BED: D.2237 AUTHOR: JAMES ORTEGA PHYSICIAN: REFERRING PHYSICIAN: ARABELLA GERONIMO MD DATE OF SERVICE: 05/31/18 Discharge Plan Patient Name: ALEN BUENO Facility: [facility]:[place] : 1930 Planned Disposition: Home with Home Health Anticipated Discharge Date: Discharge Date: 05/31/2018 Expected LOS: Initial Reviewer: [email or web address] Initial Review Date: 05/30/2018 Generated: 05/31/18 3:53 pm Comments DCP- Discharge Planning Updated by [email or web address]: Stefania Evangelistacaroline on 05/31/18 1:[address] Ivett with [facility] in [place] states they will provide the patient's home health care if she only needs PT. I informed them that if she could be on [facility] that would be helpful as well. The [place] office does not provide [facility] program, but they will see her tomorrow for PT. DCP- Discharge Planning Updated by [id number]: Stefania Bull on 05/31/18 9:[address] Received orders for discharge. I met with her and informed her the doctor would like her to have Home health. She agrees with home health and a GERSON form signed for [facility]. I called Rina with [facility] and clinical faxed to them. She states she will need a taxi. States her 2 nieces are working and can not take her home. I offered to call the nieces and she states she does not want me to call them. I called and spoke to Bessie Smiley and she received approval for Taxi from [employer]. Taxi service states it will be 70 dollars. Home today with [facility]. DCP- Discharge Planning Updated by [email or web address]: Stefania Evangelistacaroline on 05/30/18 2:[address] Patient Name: ALEN BUENO Admission Status: ER Accout number: [id number] Admission Date: 05-30-2018 : 1930 Admission Diagnosis: Attending: ARABELLA GERONIMO Current LOS: 1 Anticipated DC Date: Planned Disposition: Home with Home Health Primary Insurance: MEDICARE A & B Discharge Planning Comments: CM met with patient to complete initial dc planning assessment. CM educated patient on the CM role and verbal consent given by patient to complete assessment. Patient lives at home alone. At discharge patient plans to return and feels this is a safe discharge. CM discussed availability of home health, rehab services, and medical equipment. Patient denied known discharge needs at this time. States she has just gotten private duty care from [facility] [address] and will call them when she returns home. States she will need transportation to get home and does not have any money for a taxi. CM will continue to follow and will assist as needed with dc plans/needs. Diffusion Operator: Stefania Bull DCPIA - Discharge Planning Initial Assessment Updated by [id number]: Stefania Bull on 05/30/18 3:27 pm * Is the patient Alert and Oriented? Yes * How many steps to enter\exit or inside your home? 0/0 * PCP Dr. Moore * [facility]acy [facility] [place] * Preadmission Environment Home Alone * ADLs Independent * Equipment None * List name and contact numbers for known caregivers / representatives who currently or will assist patient after discharge: Carolina henriquez [phone] Judy henriquez - [phone] * Verbal permission to speak to the caregivers and representatives has been obtained from the patient. Yes * Community resources currently utilized Private Duty Care * Please name any agencies selected above. [facility] * Additional services required to return to the preadmission environment? No * Can the patient safely return to the preadmission environment? Yes * Has this patient been hospitalized within the prior 30 days at any hospital? No Coverage Notice Reviewer: [id number] - Stefania Bull Notice Issued Date-Time: 05/30/2018 15:24 Notice Type: Medicare Outpatient Observation Notice Notice Delivered To: Patient Relationship to Patient: Self Optical Lens Manufacturing Tech Name: Delivery Method: HAND - Hand Delivered Afia Days: Prior Verbal Notification: Recipient Understood Notice: Yes Recipient Signature: Yes Med Rec Note Co-signed by Attending: Coverage Notice Comment: TERRANCE explained, signed, given, copy placed in MR Last DP export: 05/31/18 9:53 a Patient Name: ALEN BUENO Page [id number] at 1453 All edits/amendments must be made on the electronic document DICTATION DATE: 05/31/181451 ELECTRICAL TESTS SUPERVISOR: OZZIE 05/31/181451 RPT#: [id number] DC DATE:05/31/18 STATUS: DIS IN [facility] [address] [place] [place] [address] END OF REPORT
--- NOTE | 2018-05-31 16:00 | MORECARE ---
CASE MANAGEMENT DISCHARGE SUMMARY PATIENT: ALEN BUENO UNIT: [id number] ADM DATE: 05/30/18 AGE: 88 : 34 SEX: F ROOM/BED: D.2237 AUTHOR: JAMES ORTEGA PHYSICIAN: REFERRING PHYSICIAN: ARABELLA GERONIMO MD DATE OF SERVICE: 05/31/18 Discharge Plan Patient Name: ALEN BUENO Facility: [facility]:[place] : 1930 Planned Disposition: Home with Home Health Anticipated Discharge Date: Discharge Date: 05/31/2018 Expected LOS: 0 Initial Reviewer: [id number] Initial Review Date: 05/30/2018 Generated: 05/31/18 5:00 pm Comments DCP- Discharge Planning Updated by [email or web address]: Stefania Bull on 05/31/18 1:[address] Ivett with [facility] in [place] states they will provide the patient's home health care if she only needs PT. I informed them that if she could be on [facility] that would be helpful as well. The [place] office does not provide [facility] program, but they will see her tomorrow for PT. DCP- Discharge Planning Updated by [email or web address]: Stefania Bull on 05/31/18 9:[address] Received orders for discharge. I met with her and informed her the doctor would like her to have Home health. She agrees with home health and a GERSON form signed for [facility]. I called Rina with [facility] and clinical faxed to them. She states she will need a taxi. States her 2 nieces are working and can not take her home. I offered to call the nieces and she states she does not want me to call them. I called and spoke to Bessie Smiley and she received approval for Taxi from [facility]. Taxi service states it will be 70 dollars. Home today with [facility]. DCP- Discharge Planning Updated by [id number]: Stefania Bull on 05/30/18 2:[address] Patient Name: ALEN BUENO Admission Status: ER Accout number: [id number] Admission Date: 05-30-2018 : 1930 Admission Diagnosis: Attending: ARABELLA GERONIMO Current LOS: 1 Anticipated DC Date: Planned Disposition: Home with Home Health Primary Insurance: MEDICARE A & B Discharge Planning Comments: CM met with patient to complete initial dc planning assessment. CM educated patient on the CM role and verbal consent given by patient to complete assessment. Patient lives at home alone. At discharge patient plans to return and feels this is a safe discharge. CM discussed availability of home health, rehab services, and medical equipment. Patient denied known discharge needs at this time. States she has just gotten private duty care from [facility] and will call them when she returns home. States she will need transportation to get home and does not have any money for a taxi. CM will continue to follow and will assist as needed with dc plans/needs. Newspaper Columnist: Stefania Bull DCPIA - Discharge Planning Initial Assessment Updated by [id number]: Stefania Bull on 05/30/18 3:27 pm * Is the patient Alert and Oriented? Yes * How many steps to enter\exit or inside your home? 0/0 * PCP Dr. Moore * Pharmacy [facility] in [place] * Preadmission Environment Home Alone * ADLs Independent * Equipment None * List name and contact numbers for known caregivers / representatives who currently or will assist patient after discharge: Carolina henriquez [phone] Judy henriquez [phone] * Verbal permission to speak to the caregivers and representatives has been obtained from the patient. Yes * Community resources currently utilized Private Duty Care * Please name any agencies selected above. [facility] [employer] * Additional services required to return to the preadmission environment? No * Can the patient safely return to the preadmission environment? Yes * Has this patient been hospitalized within the prior 30 days at any hospital? No Coverage Notice Reviewer: [id number] - Stefania Bull Notice Issued Date-Time: 05/30/2018 15:24 Notice Type: Medicare Outpatient Observation Notice Notice Delivered To: Patient Relationship to Patient: Self Trimmer Helper Name: Delivery Method: HAND - Hand Delivered Afia Days: Prior Verbal Notification: Recipient Understood Notice: Yes Recipient Signature: Yes Med Rec Note Co-signed by Attending: Coverage Notice Comment: TERRANCE explained, signed, given, copy placed in MR Last DP export: 05/31/18 1:53 p Patient Name: ALEN BUENO Page 19540 at 1600 All edits/amendments must be made on the electronic document DICTATION DATE: 05/31/181558 NET PROGRAMMER ANALYST: OZZIE 05/31/181558 RPT#: [id number] DC DATE:05/31/18 STATUS: DIS IN [facility] [address] [place] [address] END OF REPORT
== END 2018-05-31 13:07 | disposition home health service (06) ==
LOC: D.ER 00:28 → D.EDHOLD 03:07 → OBSVTIME 03:07 → D.MS 03:42
PROVIDERS: Emergency Medicine; Family Medicine; ADMIT Family Medicine; ATTEND Family Medicine
DX: E87.6 Hypokalemia (principal); R55 Syncope and collapse; M54.2 Cervicalgia; R51 Headache; E03.9 Hypothyroidism, unspecified; I10 Essential (primary) hypertension; I25.10 Atherosclerotic heart disease of native coronary artery without angina pectoris; R91.8 Other nonspecific abnormal finding of lung field; W18.30XA Fall on same level, unspecified, initial encounter; F41.9 Anxiety disorder, unspecified; Z78.0 Asymptomatic menopausal state

== ENCOUNTER 2018-07-05 20:38 | Emergency (ER) | payer MEDICARE ==
[~2018-07-05] VITALS: Ht 160 cm; Wt 48.6 kg
[2018-07-05 21:02] VITALS: Ht 160 cm; Wt 48.6 kg
[2018-07-05 21:41] LABS: APPEARANCE CLEAR (CLEAR); COLOR YELLOW (YELLOW)
[2018-07-05 21:42] LABS: BILIRUBIN NEGATIVE (NEGATIVE); GLUCOSE NEGATIVE (NEGATIVE); KETONE NEGATIVE (NEGATIVE); NITRITE NEGATIVE (NEGATIVE); PROTEIN NEGATIVE (NEGATIVE); UROBILINOGEN NORMAL (NORMAL)
[2018-07-05 22:27] LABS: BASOPHILS 0.8 % (0-2); EOSINOPHILS 1.9 % (0-7); HEMATOCRIT 36.1 % (36.0-48.0); HEMOGLOBIN 12.6 g/dL (12-16); IMMATURE GRANULOCYTES 0.3 % (0-5); MCH 30.5 pg (26.0-34.0); MCHC 34.9 g/dL (31.0-37.0); MCV 87.4 fL (80.0-100.0); MEAN PLATELET VOLUME 9.5 fL (7.4-10.4); MONOCYTES 9.7 % (2-11); NEUTROPHILS 60.3 % (40-80); PLATELET COUNT 227 10x3/uL (130-400); RBC 4.13 10x6/uL (4.00-5.40); RDW 13.6 % (11.5-14.5); WBC 6.4 10x3/uL (4.8-10.8)
[2018-07-05 22:45] LABS: ALBUMIN 4.1 g/dL (3.4-5.0); ALKALINE PHOSPHATASE 69 U/L (46-116); ALT (SGPT) 38 U/L (10-68); BILIRUBIN - TOTAL 0.46 mg/dL (0.2-1.3); CALC OSMOLALITY 276 mosm/kg (275-300); CALCIUM 9.6 mg/dL (8.5-10.1); CARBON DIOXIDE 28.6 mmol/L (21.0-32.0); CHLORIDE - SERUM 100 mmol/L (98-107); CREATININE - SERUM 0.9 mg/dL (0.6-1.3); GLUCOSE 96 mg/dL (74-106); POTASSIUM - SERUM 3.8 mmol/L (3.5-5.1); PROTEIN - SERUM 8.2 g/dL (6.4-8.2); SODIUM 137 mmol/L (136-145); UREA NITROGEN 20 mg/dL (7-18); eGFR NON AFRICAN AMERICAN 63 mL/min (90-120)
[2018-07-05 22:58] LABS: CKMB 1.3 U/L (0.0-3.6); CREATINE KINASE 81 UL (21-215); TROPONIN-I < 0.017 ng/mL (0.000-0.060)
[2018-07-05 23:57] VITALS: BP 162/89
== END 2018-07-05 23:57 ==
LOC: D.ER 20:38
PROVIDERS: Family Medicine
DX: R07.9 Chest pain, unspecified (principal); W19.XXXA Unspecified fall, initial encounter; I10 Essential (primary) hypertension

== ENCOUNTER 2018-09-11 20:46 | Emergency (ER) | payer MEDICARE ==
[2018-09-11 21:09] VITALS: BMI 18.9
== END 2018-09-11 22:10 | disposition left against medical advice (07) ==
LOC: D.ER 20:46
DX: M25.551 Pain in right hip (principal)

== ENCOUNTER 2018-12-26 15:43 | Emergency (ER) | payer MEDICARE ==
[~2018-12-26] VITALS: Ht 160 cm; Wt 54.5 kg
[~2018-12-26 15:43] MED LIST changes: -SYNTHROID50 MCG PO
[2018-12-26 15:53] VITALS: Ht 160 cm; Wt 54.5 kg
[2018-12-26] MEDS ORDERED: XANAX0.5 MG PO (16:03)
[2018-12-26] MEDS ORDERED: GABAPENTIN100 MG PO (16:04)
[2018-12-26] MEDS ORDERED: LIPITOR40 MG PO (16:04)
[2018-12-26] MEDS ORDERED: METOPROLOL TART25 MG PO (16:05)
[2018-12-26] MEDS ORDERED: NITROQUICK0.4 MG (16:05)
[2018-12-26] MEDS ORDERED: SYNTHROID50 MCG PO (16:06)
[2018-12-26] MEDS ORDERED: ACETAMINOPHEN325 MG PO (16:07)
[2018-12-26 20:21] VITALS: BP 189/88
== END 2018-12-26 20:23 | disposition home or self-care (01) ==
LOC: D.ER 15:43
DX: M25.521 Pain in right elbow (principal); M25.561 Pain in right knee; W19.XXXA Unspecified fall, initial encounter; I10 Essential (primary) hypertension

== ENCOUNTER 2019-01-21 17:45 | Inpatient (IN) | payer MEDICARE ==
[~2019-01-21] VITALS: Ht 160 cm; Wt 52.3 kg
[~2019-01-21 17:45] MED LIST changes: +ACETAMINOPHEN325 MG PO; +GABAPENTIN100 MG PO; +LIPITOR40 MG PO; +METOPROLOL TART25 MG PO; +NITROQUICK0.4 MG; +SYNTHROID50 MCG PO; +XANAX0.5 MG PO
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
[2019-01-21] MEDS ORDERED: ATIVAN0.5 MG PO (19:51)
[2019-01-21] MEDS ORDERED: CATAPRES0.1 MG PO (19:53)
[2019-01-21] MEDS ORDERED: ZOLOFT50 MG PO (19:56)
[2019-01-21 20:00] VITALS: BP 128/61
[2019-01-21] MEDS ORDERED: [UNRECOGNIZED DRUG - SUPPLY] (20:06)
[2019-01-21 22:43] VITALS: BP 128/61
[2019-01-22 05:48] LABS: BASOPHILS 0.5 % (0-2); EOSINOPHILS 4.7 % (0-7); HEMOGLOBIN 10.9 g/dL (12-16); IMMATURE GRANULOCYTES 0.5 % (0-5); LYMPHOCYTES 34.3 % (15-50); MCH 29.9 pg (26.0-34.0); MCV 90.4 fL (80.0-100.0); MEAN PLATELET VOLUME 9.6 fL (7.4-10.4); MONOCYTES 9.9 % (2-11); NEUTROPHILS 50.1 % (40-80); PLATELET COUNT 186 10x3/uL (130-400); RBC 3.65 10x6/uL (4.00-5.40); RDW 13.7 % (11.5-14.5); WBC 3.8 10x3/uL (4.8-10.8)
[2019-01-22 06:37] LABS: ALBUMIN 3.3 g/dL (3.4-5.0); ANION GAP 11.7 mmol/L (8-16); BILIRUBIN - TOTAL 0.6 mg/dL (0.2-1.3); CALCIUM 8.7 mg/dL (8.5-10.1); CARBON DIOXIDE 24.9 mmol/L (21.0-32.0); CREATININE - SERUM 0.8 mg/dL (0.6-1.3); LDL-HDL RATIO 4.7 ratio (1.5-3.5); POTASSIUM - SERUM 3.6 mmol/L (3.5-5.1); PROTEIN - SERUM 6.6 g/dL (6.4-8.2); THYROID STIMULATING HORMONE 0.87 uIU/mL (0.36-3.74)
[2019-01-22 06:49] LABS: APPEARANCE CLEAR (CLEAR); BILIRUBIN NEGATIVE (NEGATIVE); COLOR YELLOW (YELLOW); GLUCOSE NEGATIVE (NEGATIVE); KETONE NEGATIVE (NEGATIVE); NITRITE NEGATIVE (NEGATIVE); PROTEIN NEGATIVE (NEGATIVE); UROBILINOGEN NORMAL (NORMAL)
--- NOTE | 2019-01-22 08:00 | NUR ---
REC'D PT IN HALLWAY SITTING WITH PEERS. PT IS AWAKE AND ALERT TO PERSON ONLY. PT IS CALM AND COOPERATIVE WITH ASSESSMENT AT THIS TIME. PRESCRIBED MEDS PROVIDED. MED COMPLIANT. NO BEHAVIORS NOTED AT THIS TIME. FALL PRECAUTIONS IN PLACE. WILL CPOC.
[2019-01-22 08:30] VITALS: BP 139/67
[2019-01-22 23:24] VITALS: BP 134/57
--- NOTE | 2019-01-23 00:58 | NUR ---
RECEIVED IN HALLWAY OUSIDE OF NURSES STATION. ARGUMENTATIVE WITH STAFF. DEMANDING AT TIMES. COOPERATIVE WITH CARE AND ASSESSMENT. REDIERCT AND REORIENT NEEDED. RESTING IN BED WITH EYES CLOSED. CONTINUE PLAN OF CARE
[2019-01-23] MEDS ORDERED: SYNTHROID50 MCG PO ×2 (06:01→06:02)
[2019-01-23 07:13] LABS: RAPID PLASMA REAGIN Non Reactive (Non Reactive)
--- NOTE | 2019-01-23 10:33 | NUR ---
PT IS AWAKE AND ALERT TO PERSON. PT IS VERY CONFUSED AND HAS POOR INSIGHT INTO HER SITUATION. PT CAN BE VERY DEMANDING AT TIMES. CALM AND COOPERATIVE WITH ASSESSMENT. PRESCRIBED MEDS PROVIDED. MED COMPLIANT. REDIRECT AND REORINET NEEDED. FALL PRECAUTIONS IN PLACE. WILL CPOC.
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
[2019-01-23 15:37] LABS: BASOPHILS 0.6 % (0-2); EOSINOPHILS 2.8 % (0-7); HEMATOCRIT 33.4 % (36.0-48.0); HEMOGLOBIN 11.3 g/dL (12-16); IMMATURE GRANULOCYTES 0.2 % (0-5); LYMPHOCYTES 26.5 % (15-50); MCH 30.6 pg (26.0-34.0); MCHC 33.8 g/dL (31.0-37.0); MCV 90.5 fL (80.0-100.0); MEAN PLATELET VOLUME 9.5 fL (7.4-10.4); MONOCYTES 8.5 % (2-11); NEUTROPHILS 61.4 % (40-80); PLATELET COUNT 218 10x3/uL (130-400); RBC 3.69 10x6/uL (4.00-5.40); RDW 13.5 % (11.5-14.5)
[2019-01-23 16:05] LABS: WBC 5.1 10x3/uL (4.8-10.8)
[2019-01-23 16:09] VITALS: Ht 160 cm; Wt 52.3 kg
--- NOTE | 2019-01-23 19:54 | NUR ---
RECEIVED IN DAYROOM. WALKING ABOUT AT TIMES SOCIALIZING WITH STAFF AND PEERS. IN GOOD SPIRITS. CALM AND COOPERATIVE WITH CARE AND ASSESSMENT. NO SIGNS OF AGGRESSION. REDIRECT AND REORIENT NEEDED. SITTING WITH PEERS SOCIALIZING AT THIS TIME. CONTINUE PLAN OF CARE
--- NOTE | 2019-01-24 08:00 | NUR ---
REC'D PT IN HALLWAY BY NURSES STATION SOCIALIZING WITH PEERS. PT IS VERY PLEASANT AND COOPERATIVE THIS AM. CALM AND COOPERATIVE WITH ASSESSMENT. PRESCRIBED MEDS PROVIDED ORDERED. MED COMPLIANT. PT DOES BECOME TEARFUL AT TIMES DURING DISCUSSION REGARDING HER DOG. REDIRECT AND REORIENT NEEDED. FALL PRECAUTIONS IN PLACE. WILL CPOC.
[2019-01-24 08:49] VITALS: BP 189/78
--- NOTE | 2019-01-24 12:24 | PN ---
PATIENT:ALEN BUENO MEDICAL RECORD: [id number] LOCATION:FIDELINA Ashley113 ADMISSION DATE: 01/21/19 PROGRESS NOTE DATE OF SERVICE: 01/23/2019 SUBJECTIVE: The patient's case was discussed with staff. She has no new complaint. OBJECTIVE: The patient is tolerating her medicines well. She is significantly calmer. ASSESSMENT: Dementia. PLAN: I am going to discontinue the patient's current scheduled dose of Ativan and will drop the dose to half of what it currently is. TRANSINT:[id number] Voice Confirmation ID: [id number] DOCUMENT ID: [id number] STEPHAN DILL MD at 1224 CC: [id number] DICTATION DATE: 01/23/19 1224 BARTENDER MANAGER: 01/23/19 1230 ADM IN [place] [address] [place] [address]
[2019-01-24 20:11] VITALS: BP 126/52
--- NOTE | 2019-01-25 02:41 | NUR ---
RECEIVED IN DAYROOM. WATCHING TV. CALM AND COOPERATIVE WITH CARE AND ASSESSMENT. NO AGGRESSIVE BEHAVIOR. REDIRECT AND REORIENT NEEDED. RESTING IN BED WITH EYES CLOSED AT THIS TIME. CONTINUE PLAN OF CARE.
--- NOTE | 2019-01-25 12:07 | NUR ---
NUTRITION F/U PT TOLERATING REG DIET WITH 85 TO 100% INTAKE RECENT MEALS. WT STABLE. BM RECORDED ON 01/24. RD FOLLOWING
--- NOTE | 2019-01-25 14:12 | NUR ---
PATIENT DEMANDING, COMPLAINING, INSTIGATES DISCORD AMONG THE OTHER PATIENTS, OFTEN REFUSES CERTAIN MEDICATIONS BUT COMPLIANT WITH OTHER MEDS. NO AGGRESSION NOTED AT THIS TIME. CONT POC DIRECTED.
[2019-01-25 14:55] VITALS: BP 135/43
--- NOTE | 2019-01-25 15:09 | PN ---
PATIENT:ALEN BUENO MEDICAL RECORD: [id number] LOCATION:FIDELINA Boggs ADMISSION DATE: 01/21/19 PROGRESS NOTE DATE OF SERVICE: 01/24/2019 SUBJECTIVE: The patient's case was discussed with staff. She has no new complaint. OBJECTIVE: The patient is in good behavioral control and is eating and sleeping well. ASSESSMENT: Dementia. PLAN: Brief supportive and educational interventions were made. Long-term prognosis is guarded. TRANSINT:[id number] Voice Confirmation ID: [id number] DOCUMENT ID: [id number] STEPHAN DILL MD at 1509 CC: [id number] DICTATION DATE: 01/24/19 1616 TIRE MECHANIC: 01/24/19 2356 ADM IN [place] [id number] [place] [id number]
[2019-01-25 20:12] VITALS: BP 155/62
--- NOTE | 2019-01-25 23:39 | NUR ---
B.) PT IS ALERT AND ORIENTED X4. SHE IS ABLE TO AMBULATE ON HER OWN. SHE IS ABLE TO MAKE HER NEEDS KNOWN. SHE IS PLEASANT WITH STAFF AND PEERS. I.) PROVIDED PM MEDICATIONS. R.) COMPLIANT WITH ALL MEDICATIONS. P.) CONTINUE PLAN OF CARE
--- NOTE | 2019-01-26 06:28 | NUR ---
PT HAS A RED GENERALIZED RASH. C/O OF ITCHING. REMOVED CHG WASH FROM ROOM AND SUPPLIED HER WITH TEARLESS BABY SHAMPOO. WILL CONTINUE TO MONITOR.
[2019-01-26 09:51] VITALS: BP 146/42
--- NOTE | 2019-01-26 13:51 | NUR ---
B) The patient is awake and alert, she is pleasant and calm. She is talking to staff and peers and gets along well. She has not shown any aggression today. She has some confusion and she has poor insight into her situation and poor short term memory recall. She ambulates and says she has had MS since she was 34. I) Provide prescribed meds. R) The patient is compliant with meds. P) Continue POC.
--- NOTE | 2019-01-26 15:56 | PN ---
PATIENT:ALEN BUENO MEDICAL RECORD: [id number] LOCATION:F[facility]ELINA [facility]113 ADMISSION DATE: 01/21/19 PROGRESS NOTE DATE OF SERVICE: 01/25/2019 SUBJECTIVE: The patient's case was discussed with staff. She has no new complaint. OBJECTIVE: The patient is much calmer today. She is still very impaired cognitively, but she is eating and sleeping well. ASSESSMENT: Dementia. PLAN: Supportive and educational interventions were made. I have reviewed her medications and will maintain them. TRANSINT:[id number] Voice Confirmation ID: [id number] DOCUMENT ID: [id number] STEPHAN DILL MD at 1556 CC: [id number] DICTATION DATE: 01/25/19 1609 TESTER EQUIPMENT: 01/25/19 192 ADM IN [facility] [address] [place] [address]
--- NOTE | 2019-01-26 20:46 | NUR ---
RECEIVED IN HALLWAY OUTSIDE OF NURSES STATION. WAITING ON PM MEDICATONS. CALM AND COOPERATIVE WITH CARE AND ASSESSMENT. NO AGGRESSIVE BEHAVIORS. DEMANDING AT TIMES. REDIRECT AND REORIENT NEEDED. RESTING IN BED WITH EYES OPEN AT THIS TIME. CONTINUE PLAN OF CARE.
[2019-01-26 21:58] VITALS: BP 151/58
--- NOTE | 2019-01-27 13:04 | NUR ---
PT SITTING AND SOCIALIZING WITH PEERS. NO ACUTE DISTRESS NOTED. PT IS VERY FRIENDLY WITH STAFF AND PEERS. NO AGGRESSIVE NOTED. PT COMPLIANT WITH STAFF, MEDS AND VITALS. CAN MAKE NEEDS KNOWN. WILL CONT PLAN OF CARE.
--- NOTE | 2019-01-27 13:14 | PN ---
PATIENT:ALEN BUENO MEDICAL RECORD: [id number] LOCATION:[facility]113 ADMISSION DATE: 01/21/19 PROGRESS NOTE DATE OF SERVICE: 01/26/2019 SUBJECTIVE: The patient's case was discussed with staff. She has no new complaint. OBJECTIVE: The patient denies intent to harm herself or others. She generally tolerates her medicines well. ASSESSMENT: No change in diagnoses. PLAN: Brief supportive and educational interventions were made. Long-term prognosis is guarded. TRANSINT:[id number] Voice Confirmation ID: [id number] DOCUMENT ID: [id number] STEPHAN DILL MD at 1314 CC: [id number] DICTATION DATE: 01/26/19 180 BUILDING MAINTENANCE SUPERVISOR: 01/26/19 1841 ADM IN [facility] [address] [place] [address]
[2019-01-27 20:00] VITALS: BP 224/64
--- NOTE | 2019-01-27 22:31 | NUR ---
PATIENT IS DEMANDING, VERY NEEDY, MANIPULATIVE. WILL FOLLOW POC
--- NOTE | 2019-01-28 08:09 | NUR ---
B/P 210/80 CLONIDINE 0.1MG GIVEN PER PRN ORDER. WILL RECHECK.
--- NOTE | 2019-01-28 09:00 | NUR ---
B/P RECHECK 112/
--- NOTE | 2019-01-28 09:54 | NUR ---
NURSE WAS ADMINISTERING MEDS TO PT. NURSE EXPLAINED WHICH MEDS WERE IN THE CUP AND THE FUNCTION OF EVERY MED. PT ASKED WHAT ZOLOFT WAS USED FOR. NURSE EXPLAINED WE WENT OVER THE FUNCTION YESTERDAY AND EXPLAINED FUNCTION AGAIN. PT REFUSED MEDICATION. NURSE ATTEMPTED TO GET CUP OF MEDS BACK SO THE OTHER NURSE COULD ATTEMPTED TO EXPLAIN MEDS. PT TOOK 2 MEDS OUT OF THE CUP AND TOOK THEM. PT GAVE ZOLOFT BACK TO THIS NURSE WHICH SHE HAD REFUSED. THIS NURSE TOLD HER THAT HER NURSE WOULD SPEAK WITH HER ABOUT HER MEDICATION.
[2019-01-28 11:03] VITALS: BP 212/80
--- NOTE | 2019-01-28 11:08 | PN ---
PATIENT:ALEN BUENO MEDICAL RECORD: [id number] LOCATION:FIDELINA Ramirez113 ADMISSION DATE: 01/21/19 PROGRESS NOTE DATE OF SERVICE: 01/27/2019 SUBJECTIVE: The patient's case was discussed with staff. She has no new complaint. OBJECTIVE: The patient is in good behavioral control and quite pleasant. She interacts well. There are no thoughts of self-harm and she has not been aggressive. ASSESSMENT: Dementia. PLAN: Current medicines have been reviewed and will be maintained. Long-term prognosis is guarded. TRANSINT:[id number] Voice Confirmation ID: [id number] DOCUMENT ID: [id number] STEPHAN DILL MD at 1108 CC: [id number] DICTATION DATE: 01/27/19 1359 MANAGER HEAVY EQUIPMENT: 01/27/19 1538 ADM IN [facility] [address] [place] [address]
[2019-01-28 11:42] VITALS: BP 112/52
--- NOTE | 2019-01-28 11:48 | NUR ---
PT IS AWAKE AND ALERT X 2. PT IS CALM AND COOPERATIVE WITH ASSESSMENT. PRESCRIBED MEDS PROVIDED ORDERED. PT IS MED COMPLIANT, HOWEVER PT REFUSED ZOLOFT THIS MORNING. PT SATES " IT MAKES ME A EMOTIONAL WRECK." PT IS VERY TEARFUL AND IRRITABLE THIS MORNING. REDIRECT AND REORIENT NEEDED. FALL PRECAUTIONS IN PLACE. WILL CPOC.
--- NOTE | 2019-01-28 16:02 | NUR ---
B/P RECHECK 158/70
--- NOTE | 2019-01-28 18:18 | NUR ---
B/P MEDS TIMES CHANGED TO 0700 AND 1630 TO HELP KEEP PT B/P CONTROLLED. NEW ORDER NOTED PER DR. ATWOOD. CLONIDINE 0.1MG PO PRN NOT USED UNLESS SCHEDULED MEDS NOT EFFECTIVE. WILL CPOC.
[2019-01-28 19:02] VITALS: BP 161/36
--- NOTE | 2019-01-28 22:08 | NUR ---
RECEIVED IN DAYROOM. WALKING ABOUT DAYROOM. SOCIAL AT TIMES. CALM AND COOPERATIVE WITH CARE AND ASSESSMENT. NO SIGNS OF AGGRESSION. REDIRECT AND REORIENT NEEDED. RESTING IN BED WITH EYES CLOSED AT THIS TIME. CONTINUE PLAN OF CARE
--- NOTE | 2019-01-29 08:00 | NUR ---
REC'D PT IN HALLWAY WITH PEERS SOCIALIZING. AWAKE AND ALERT X 2. CALM AND COOPERATIVE WITH ASSESSMENT. PRESCRIBED MEDS PROVIDED ORDERED. MED COMPLIANT. NO BEHAVIORS NOTED AT THIS TIME. REDIRECT AND REORIENT NEEDED. FALL PRECAUTIONS IN PLACE. WILL CPOC.
[2019-01-29 09:13] VITALS: BP 140/80
--- NOTE | 2019-01-29 15:38 | PN ---
PATIENT:ALEN BUENO MEDICAL RECORD: [id number] LOCATION:FIDELINA Boggs ADMISSION DATE: 01/21/19 PROGRESS NOTE DATE OF SERVICE: 01/28/2019 SUBJECTIVE: The patient's case was discussed with staff. She has no new complaint. OBJECTIVE: The patient is participating in treatment reasonably well. She is tolerating her medicines reasonably well. She has not been aggressive today, although she came close to it with some angry, confused comments she was making. Staff very skillfully redirected her and diffused the situation. ASSESSMENT: Dementia. PLAN: Supportive and educational interventions were made. I have reviewed current medicines and will maintain both. I anticipate she can be transitioned out of the hospital soon. TRANSINT:[id number] Voice Confirmation ID: [id number] DOCUMENT ID: [id number] STEPHAN DILL MD at 1538 CC: [id number] DICTATION DATE: 01/28/19 1139 NETWORK DEVELOPMENT COORDINATOR: 01/28/19 1225 ADM IN [place] [id number] [place] [address]
[2019-01-29 20:00] VITALS: BP 161/71
--- NOTE | 2019-01-29 21:42 | NUR ---
RECEIVED IN DAYROOM. SOCIAL WITH STAFF AND PEERS. CALM AND COOPERATIVE WITH CARE AND ASSESSMENT. NO SIGNS OF AGGRESSION. NO DEMANDING BEHAVIORS THIS PM. REDIRECT AND REORIENT NEEDED. LEFT ARM RED AND SWOLLEN AROUND ELBOW. RESTING IN BED WITH EYES CLOSED. CONTINUE PLAN OF CARE
--- NOTE | 2019-01-30 08:00 | NUR ---
REC'D PT SITING IN HALLWAY WITH PEERS. AWAKE AND ALERT X 3. PT IS CALM AND COOPERATIVE WITH ASSESSMENT. PRESCRIBED MEDS PROVIDED. MED COMPLIANT. PT DID EXPRESS CONCERN THAT ZOLOFT WAS MAKING HER VERY EMOTIONAL, WILL DISCUSS WITH DR. DILL. PT DOES BECOME TEARFUL OFTEN DURING SHIFT. NO OTHER BEHAVIORS NOTED AT THIS TIME. REDIRECT AND REORIENT NEEDED. FALL PRECAUTIONS IN PLACE. WILL CPOC.
[2019-01-30 08:58] VITALS: BP 130/100
--- NOTE | 2019-01-30 14:16 | NUR ---
Nutrition Follow-up: Diet: Regular PO intake: ~57% average x last 9 meals Last BM = 01/26/19. Wt: 111# (01/28/19); Admit wt: 106# (01/22/19) Meds and nursing skin assessment reviewed. No new labs. No BM x 4 days. Consider adding bowel regimen. Hopefully appetite will improve with BM regularity. RD Following.
--- NOTE | 2019-01-30 15:36 | PN ---
PATIENT:ALEN BUENO MEDICAL RECORD: [id number] LOCATION:FIDELINA [facility]113 ADMISSION DATE: 01/21/19 PROGRESS NOTE DATE OF SERVICE: 01/29/2019 SUBJECTIVE: The patient's case was discussed with staff. She has no new complaint. OBJECTIVE: The patient is in good behavioral control, but at times becomes confused and tearful. ASSESSMENT: Dementia. PLAN: The patient is currently receiving Benadryl for a rash. I will change that to a topical hydrocortisone tablet. TRANSINT:[id number] Voice Confirmation ID: [id number] DOCUMENT ID: [id number] STEPHAN DILL MD at 1536 CC: [id number] DICTATION DATE: 01/29/19 1647 BIOMEDICAL SERVICE ENGINEER: 01/29/19 1738 ADM IN [place] [address] [place] [address]
[2019-01-30 22:08] VITALS: BP 149/90
--- NOTE | 2019-01-30 23:33 | NUR ---
RECEIVED IN HALLWAY. SITTING WITH PEERS SOCIALIZING WITH THEM AND STAFF. IN GOOD SPIRITS. CALM AND COOPERATIVE WITH CARE AND ASSESSMENT. NO SIGNS OF AGGRESSION. ENCOURAGE TO EXPRESS NEEDS. RESTING IN BED WITH EYES CLOSED. CONTINUE PLAN OF CARE
[2019-01-31 08:48] VITALS: BP 174/52
--- NOTE | 2019-01-31 12:43 | PN ---
PATIENT:ALEN BUENO MEDICAL RECORD: [id number] LOCATION:FIDELINA Ramirez113 ADMISSION DATE: 01/21/19 PROGRESS NOTE DATE OF SERVICE: 01/30/2019 SUBJECTIVE: The patient's case was discussed with staff. She has no new complaint. OBJECTIVE: The patient is in good behavioral control with poor insight about her condition. She does tolerate her medicines well. ASSESSMENT: Dementia. PLAN: The patient complains that the Zoloft or actually she believes the Zoloft is causing her to be more depressed. Obviously, that is inconsistent with the medication, but I am going to go ahead and discontinue it and we will start her on a different antidepressant because of this concern. TRANSINT:[id number] Voice Confirmation ID: [id number] DOCUMENT ID: [id number] STEPHAN IDLL MD at 1243 CC: [id number] DICTATION DATE: 01/30/19 1551 STEAM SETTER: 01/30/19 1750 ADM IN [place] [id number] [place] [address]
--- NOTE | 2019-01-31 13:00 | NUR ---
PATIENT IS ALERT, CALM AND COOPERATIVE WITH CARE AND ASSESSMENT. ADMINISTER PRESCRIBED MEDICATIONS WITH COMPLETE COMPLIANCE AFTER REVIEWING EACH MEDICATION. NO AGGRESSION NOTED, BUT A LITTLE TEARFUL THIS MORNING. SHE WAS A BIT RESISTANT TO TAKE HER EFFEXOR. THEN SHE HAS SLEPT ALL AFTERNOON SINCE TAKING AM MEDICATION. CONTINUE POC.
--- NOTE | 2019-01-31 21:11 | NUR ---
PATIENT CROSSES BOUNDARIES AT TIMED, SHE IS SOMEWHAT DEMANDING, COMPLIANT WITH MEDS, NO ADVERSE REACTION NOTED. WILL FOLLOW POC
[2019-01-31 22:00] VITALS: BP 184/53
[2019-02-01 09:05] VITALS: BP 102/60
--- NOTE | 2019-02-01 11:00 | NUR ---
NUTRITION F/U PT TOLERATING REG DIET. ~60% AVERAGE INTAKE RECENT MEALS. WT INCREASE NOTED. BM RECORDED 01/31/19. WILL CONTINUE TO PROVIDE DIET, MONITOR PO INTAKE AND WT. RD FOLLOWING
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
--- NOTE | 2019-02-01 14:26 | PN ---
PATIENT:ALEN BUENO MEDICAL RECORD: [id number] LOCATION:FIDELINA [facility]113 ADMISSION DATE: 01/21/19 PROGRESS NOTE DATE OF SERVICE: 01/31/2019 SUBJECTIVE: The patient's case was discussed with staff. She has no new complaint. OBJECTIVE: The patient been quite labile and disruptive. She has very limited insight about her situation. She is difficult to redirect. ASSESSMENT: Dementia. PLAN: The patient's Effexor is going to be discontinued. Apparently, it made her sedated this morning. I am going to start her on a scheduled dose of Trilafon to assist with thought disorganization and will increase her dose of gabapentin for mood stabilization. TRANSINT:[id number] Voice Confirmation ID: [id number] DOCUMENT ID: [id number] STEPHAN DILL MD at 1426 CC: [id number] DICTATION DATE: 01/31/19 1632 TILE POWER SHEAR OPERATOR: 01/31/19 2159 ADM IN [facility] [address] [place] [id number]
--- NOTE | 2019-02-01 16:35 | NUR ---
The patient does show some confusion this afternoon as she has asked me to tell her the names of her medications three times and asked what they are for. She also said she was feeling like she might pass out and felt nauseated, but she said "oh, I that every six months and it only lasts a minute." She is better now. She then began walking to exercise a little and she said "I wish I didn't limp, but I have for years because I have MS."
[2019-02-01 21:32] VITALS: BP 200/73
--- NOTE | 2019-02-02 01:12 | NUR ---
PATIENT IS DEMANDING, EASILY AGITATED, HAS A LOT OF REQUESTS. COMPLIANT WITH MEDS THIS EVENING. WILL FOLLOW POC
--- NOTE | 2019-02-02 11:21 | NUR ---
B) The patient woke up angry, she believes she has lost clothes, although, nothing shows on her belongings list and she says she is beyond pissed. She ambulates independently. I) Provide prescribed meds. R) The patient is compliant with meds, but she refused her gabapentin. P) Continue POC.
--- NOTE | 2019-02-02 14:37 | PN ---
PATIENT:ALEN BUENO MEDICAL RECORD: [id number] LOCATION:[facility] ADMISSION DATE: 01/21/19 PROGRESS NOTE DATE OF SERVICE: 02/01/2019 SUBJECTIVE: The patient's case was discussed with staff. She has no new complaint. OBJECTIVE: The patient is in good behavioral control with fairly limited insight about her condition. ASSESSMENT: Dementia. PLAN: The patient will be maintained on current medicines, which I have reviewed. Her long-term prognosis is guarded. TRANSINT:[id number] Voice Confirmation ID: [id number] DOCUMENT ID: [id number] STEPHAN DILL MD at 1437 CC: [id number] DICTATION DATE: 02/01/19 1542 ASSISTANCE REPRESENTATIVE: 02/01/19 1805 ADM IN [place] [id number] [place] [address]
--- NOTE | 2019-02-02 17:27 | NUR ---
blood pressure manually was 200/80. pt has not voiced any c/o of dizziness. will recheck in 30 mins.
--- NOTE | 2019-02-02 17:29 | NUR ---
pt did refuse 0900 vitals signs.
[2019-02-02 17:31] VITALS: BP 200/80
--- NOTE | 2019-02-02 18:06 | NUR ---
MANUAL BLOOD PRESSURE: 130/70. 30 MINS AFTER ROUTINE MEDICATIONS WERE GIVEN.
--- NOTE | 2019-02-02 18:18 | NUR ---
PT REQUESTED HYDROCORTISONE CREAM TO BILATERAL ARMS. PT STATED WHERE IS MY CREAM? AMNA BEEN ASKING ALL DAY MY ARMS BEEN BURNING ALL." PT DID NOT ASK FOR CREAM PRIOR TO THIS TIME.
--- NOTE | 2019-02-02 21:45 | NUR ---
B.) PT IS ALERT AND ORIENTED X4. SHE IS SITUATIONALLY INTRUSIVE AND ATTENTION SEEKING. SHE IS ABLE TO AMBULATE WITHOUT ASSISTANCE. I.) PROVIDE PM MEDICATIONS. R.) COMPLIANT WITH ALL MEDICATIONS. P.) WILL CONTINUE TO MONITOR.
[2019-02-03 02:34] VITALS: BP 182/56
[2019-02-03 06:09] VITALS: BP 162/42
[2019-02-03 09:03] VITALS: BP 122/70
--- NOTE | 2019-02-03 12:38 | PN ---
PATIENT:ALEN BUENO MEDICAL RECORD: [id number] LOCATION:[facility] ADMISSION DATE: 01/21/19 PROGRESS NOTE DATE OF SERVICE: 02/02/2019 SUBJECTIVE: The patient's case was discussed with staff. She has no new complaint. OBJECTIVE: The patient denies intent to harm herself or others. She is still significantly and seriously agitated. The irritability seems to be characterologic in nature and I do not think it is going to significantly respond to antidepressant medication, although I will start one since the relative risk versus relative benefit favors doing so. I also have her on gabapentin, which I am going to maintain at this dose today. TRANSINT:[id number] Voice Confirmation ID: [id number] DOCUMENT ID: [id number] STEPHAN DILL MD at 1238 CC: [id number] DICTATION DATE: 02/02/19 1536 AUTOCAD TECHNICIAN: 02/02/19 1633 ADM IN [id number] [place] [address]
--- NOTE | 2019-02-03 13:30 | NUR ---
The patient is in a good mood today. She is not agitated today and she has not made any remarks about negatives today. She ambulates independently. Provide prescribed meds. The patient is compliant with meds. Continue POC.
--- NOTE | 2019-02-03 17:00 | NUR ---
The patient has herself all worked up, she says she is itching and her eyes are numb. She is beside herself, she is crying and her bp is elevated, assisted her take deep breaths and try to relax. Provided her eye drops and her anti itch cream for her arm, but she is nearly wailing and flailing on the couch. Asked her if I could get her an ativan because I felt like it would help her and she got angry and said "No" Explained to her that she may need to get an injection of ativan as she is getting herself worked up and she is upsetting the others. The patient wiped her eyes and began to settle herself.
--- NOTE | 2019-02-03 18:09 | NUR ---
The patient came to me and requested an ativan, she said "That man just told me to shut up and sit down, I am a nervous wreck now." Ativan 0.5 mg po provided.
[2019-02-03 20:10] VITALS: BP 198/70
--- NOTE | 2019-02-03 22:55 | NUR ---
B.) PT IS ALERT AND ORIENTED TO SELF, SITUATION AND PLACE. SHE IS ABLE TO AMBULATE UNASSISTED AND MAKE HER NEEDS KNOWN. SHE CAN BE INTRUSIVE WITH STAFF BUT PLEASANT WITH PEERS. I.) PROVIDED PM MEDICATIONS. R.) COMPLIANT WITH MEDICATIONS. P.) WILL CONTINUE TO MONITOR.
[2019-02-04 05:48] VITALS: BP 185/42
--- NOTE | 2019-02-04 06:34 | NUR ---
PT IS ANXIOUS THAT SHE IS GOING BACK TO A SENIOR CARE WHEN DISCHARGED. SHE IS TEARFUL AND STATES "IF I GO BACK TO A SENIOR CARE I WILL THERE." PT DENIES SI.
[2019-02-04 08:00] VITALS: BP 181/60
--- NOTE | 2019-02-04 10:47 | NUR ---
PT IN DAYROOM WITH PEERS. AWAKE AND ALERT X 2. PT IS TEARFUL THIS MORNING. PT WAS CALM AND COOPERATIVE WITH ASSESSMENT. PRESCRIBED MEDS PROVIDED ORDERED. MED COMPLIANT. NO OTHER BEHAVIORS NOTED AT THIS TIME. REDIRECT AND REORIENT NEEDED. FALL PRECAUTIONS IN PLACE. WILL CPOC.
--- NOTE | 2019-02-04 11:48 | PN ---
PATIENT:ALEN BUENO MEDICAL RECORD: [id number] LOCATION:[facility] ADMISSION DATE: 01/21/19 PROGRESS NOTE DATE OF SERVICE: 02/03/2019 SUBJECTIVE: The patient's case was discussed with staff. She has no new complaint. OBJECTIVE: The patient is still not eating adequately. She has poor insight about her situation. ASSESSMENT: Dementia. PLAN: I anticipate discharge soon. I think her mood lability has improved. TRANSINT:[id number] Voice Confirmation ID: [id number] DOCUMENT ID: [id number] STEPHAN DILL MD at 1148 CC: [id number] DICTATION DATE: 02/03/19 1352 MANAGER BUSINESS OPERATIONS: 02/03/19 1435 ADM IN [id number] [place] [address]
--- NOTE | 2019-02-04 17:56 | NUR ---
PT IS WORKED UP AND B/P IS ELEVATED. PT IS VERY ANXIOUS AT THIS TIME. EXPLAINED TO PT TO TAKE DEEP BREATHS AND TRY TO RELAX. TEACHING NOT EFFECTIVE AT THIS TIME. ATIVAN 0.5MG PO GIVEN PER ORDER. WILL CONTINUE TO MONITOR.
[2019-02-04 20:00] VITALS: BP 223/63
--- NOTE | 2019-02-04 21:05 | NUR ---
B.) PT IS ALERT AND ORIENTED TO SELF, PLACE AND SITUATION. SHE IS AT TIME ANXIOUS ABOUT GOING BACK TO THE GROUP HOME. SHE IS ABLE TO MAKE HER NEEDS KNOWN. SHE IS ABLE TO AMBULATE WITHOUT ASSISTANCE. BP IS 223/63. I.) PROVIDED PM MEDICATIONS. R.) COMPLIANT WITH ALL MEDICATIONS EXCEPT FOR ATORVASTATIN. STATES "MY REGUALR DOCTOR TOLD ME TO NEVER TAKE THAT STUFF." P.) WILL CONTINUE TO MONITOR
--- NOTE | 2019-02-04 22:30 | NUR ---
PT MANUAL BP IS 152/78. PT NOTES IMPROVEMENT IN ANXIETY. WILL CONTINUE TO MONITOR.
--- NOTE | 2019-02-05 07:30 | NUR ---
REC'D PT SITTING IN CHAIR BY NURSES STATION THIS MORNING. AWAKE AND ALERT X 3. CALM AND COOPERATIVE WITH ASSESSMENT. PT REPORTS " I GOT A GOOD NIGHTS SLEEP." PT IS PLEASANT. PRESCRIBED MEDS PROVIDED ORDERED. MED COMPLIANT. REDIRECT AND REORIENT NEEDED. FALL PRECAUTIONS IN PLACE. NO BEHAVIORS NOTED AT THIS TIME. WILL CPOC.
[2019-02-05 10:50] VITALS: BP 148/55
--- NOTE | 2019-02-05 17:28 | NUR ---
PATIENT EXPERIENCING ANXIETY, RESTLESSNESS. ATIVAN 0.5 MG ADMIN PO.
--- NOTE | 2019-02-05 22:34 | NUR ---
RECEIVED IN HALLWAY OUTSIDE OF NURSES STATION. VERY CONFUSED AND INTRUSIVE. COOPERATIVE WITH CARE AND ASSESSMENT. NO AGGRESSIVE BEHAVIOR. REDIRECT AND REORIENT NEEDED. RESTING IN BED WITH EYES CLOSED AT THIS TIME. CONTINUE PLAN OF CARE.
[2019-02-06 00:03] VITALS: BP 160/68
[2019-02-06 08:24] VITALS: BP 120/80
--- NOTE | 2019-02-06 13:46 | NUR ---
PT IS ALERT AND ORIENTED X 2. CALM AND COOPERATIVE WITH ASSESSMENT. PRESCRIBED MEDS PROVIDED. MED COMPLIANT. PT IS LESS TEARFUL TODAY. NO BEHAVIORS NOTED. REDIRECT AND REORIENT NEEDED. FALL PRECAUTIONS IN PLACE. WILL CPOC.
--- NOTE | 2019-02-06 15:36 | PN ---
PATIENT:ALEN BUENO MEDICAL RECORD: [id number] LOCATION:[facility] ADMISSION DATE: 01/21/19 PROGRESS NOTE DATE OF SERVICE: 02/05/2019 SUBJECTIVE: The patient's case was discussed with staff. She has no new complaint. OBJECTIVE: The patient is in good behavioral control with poor insight about her situation. ASSESSMENT: Dementia. PLAN: Supportive and educational interventions were made. Long-term prognosis is guarded. TRANSINT:[id number] Voice Confirmation ID: [id number] DOCUMENT ID: [id number] STEPHAN DILL MD at 1536 CC: [id number] DICTATION DATE: 02/05/192057 AIRCRAFT INSPECTION RECORD CLERK: 02/05/192121 ADM IN [place] [id number] [place] [id number]
[2019-02-06 20:48] VITALS: BP 130/64
--- NOTE | 2019-02-06 21:11 | NUR ---
RECEIVED IN HALLWAY OUTSIDE OF NURSES STATION. VERY INTRUSIVE AND DEMANDING. COOPERATIVE WITH CARE AND ASSESSMENT. VERBALLY AGGRESSIVE TOWARDS STAFF. REDIRECT AND REORIENT NEEDED. SITTING ON SIDE OF BED AT THIS TIME. CONTINUE PLAN OF CARE.
[2019-02-07 07:00] VITALS: BP 198/60
--- NOTE | 2019-02-07 08:06 | NUR ---
REC'D PT IN BED GETTING READY FOR THE DAY. PT IS VERY ANXIOUS THIS MORNING. COOPERATIVE WITH ASSESSMENT. PRESCRIBED MEDS PROVIDED ORDERED. MED COMPLIANT. REDIRECT AND REORIENT NEEDED. NO OTHER BEHAVIORS NOTED AT THIS TIME. FALL PRECAUTIONS IN PLACE. WILL CPOC.
--- NOTE | 2019-02-07 13:45 | PN ---
PATIENT:ALEN BUENO MEDICAL RECORD: [id number] LOCATION:[facility] ADMISSION DATE: 01/21/19 PROGRESS NOTE DATE OF SERVICE: 02/06/2019 SUBJECTIVE: The patient's case was discussed with staff. She has no new complaint. OBJECTIVE: The patient continues to be quite anxious. She is tremulous and has difficulty following through with her thoughts because of it. ASSESSMENT: Dementia. PLAN: The patient is going to have her Xanax increased to 0.25 mg 3 times daily. She will be monitored for clinical changes. I think that she can tolerate this higher dose well. TRANSINT:[id number] Voice Confirmation ID: [id number] DOCUMENT ID: [id number] STEPHAN DILL MD at 1345 CC: [id number] DICTATION DATE: 02/06/191945 MATERIAL ASSEMBLER: 02/06/192131 ADM IN [facility] [address] [place] [address]
--- NOTE | 2019-02-07 15:32 | NUR ---
Nutrition Follow-up: Diet: Regular PO intake: ~60% average x last 9 meals Last BM: 02/05/19. Wt: 111# (02/04/19); Admit wt: 106# (01/22/19) Meds and labs reviewed Continue current nutrition regimen. RD Following.
--- NOTE | 2019-02-07 20:24 | NUR ---
RECEIVED IN HALLWAY OUTSIDE OF NURSES STATION. WAITING ON PM MEDICATIONS. CALM AND COOPERATIVE WITH CARE AND ASSESSMENT. VERY INTRUSIVE AND DEMANDING. NO AGGRESSIVE BEHAVIOR. REDIRECT AND REORIENT NEEDED. SITTING IN HALLWAY AT THIS TIME. CONTINUE PLAN OF CARE.
[2019-02-07 22:59] VITALS: BP 180/82
[2019-02-08 01:22] VITALS: BP 175/60
[2019-02-08 05:18] VITALS: BP 162/68
[2019-02-08 08:00] VITALS: BP 162/61
--- NOTE | 2019-02-08 08:55 | PN ---
PATIENT:ALEN BUENO MEDICAL RECORD: [id number] LOCATION:[facility] ADMISSION DATE: 01/21/19 PROGRESS NOTE DATE OF SERVICE: 02/07/2019 SUBJECTIVE: The patient's case was discussed with staff. She has no new complaint. OBJECTIVE: The patient is in good behavioral control. She seems to have reduction in her anxiety based upon the Xanax she was given. ASSESSMENT: Dementia. PLAN: The patient is not going to be able to go anywhere, but the [facility]. I did get some additional information from Adult Protective Services today. She was in a less restrictive environment and was too disruptive, they could not keep her there. The options regarding her family are not options as all of her family have expressed no interest in not only having her live with them, but do not even want any contact or updates or information about her. TRANSINT:[id number] Voice Confirmation ID: [id number] DOCUMENT ID: [id number] STEPHAN DILL MD at 0855 CC: [id number] DICTATION DATE: 02/07/19 1634 SUPERVISOR ENROBING: 02/07/19 2045 ADM IN [facility] [address] [place] [address]
--- NOTE | 2019-02-08 11:43 | NUR ---
RECEIVED PT. IN DINING ROOM AT B'FAST, ALERT, CALM, COOPERATIVE, PLEASANT MOOD. MEDS ADMIN PER ORDERS WITH COMPLETE MED COMPLIANCE NOTED. CONT POC DIRECTED.
[2019-02-08 12:00] VITALS: BP 190/80
[2019-02-08 12:30] VITALS: BP 190/80
--- NOTE | 2019-02-08 13:21 | NUR ---
PATIENT EXPERIENCING ANXIETY AND AGITATION, ATIVAN 0.5 MG TAB ADMIN PO.
--- NOTE | 2019-02-08 21:59 | NUR ---
RECEIVED IN DAYROOM. SITTING IN A CHAIR SOCIALIZING WITH STAFF AND PEERS. CALM AND COOPERQATIVE WITH CARE AND ASSESSMENT. NO SIGNS OF AGGRESSION. REDIRECT AND ERORIENT NEEDED. RESTING IN BED WITH EYES CLOED AT THIS TIME. CONTINUE PLAN OF CARE
[2019-02-08 22:47] VITALS: BP 180/70
[2019-02-09 06:28] VITALS: BP 154/53
--- NOTE | 2019-02-09 10:00 | NUR ---
RECEIVED PT IN DINING ROOM AT B'FAST, ALERT, SOMEWHAT AGITATED, REFUSED NEURONTIN AND HER ANTI-DEPRESSANT, STATING THAT THE ANTI-DEPRESSANT MADE HER MORE DEPRESSED. PT STILL QUITE UPSET ABOUT CUSTODIAL PLACEMENT. CONT PLAN OF CARE DIRECTED.
[2019-02-09 12:00] VITALS: BP 207/50
[2019-02-09 15:21] VITALS: BP 154/53
--- NOTE | 2019-02-09 16:06 | PN ---
PATIENT:ALEN BUENO MEDICAL RECORD: [id number] LOCATION:F[facility]ELINA RamirezJoaquín ADMISSION DATE: 01/21/19 PROGRESS NOTE DATE OF SERVICE: 02/08/2019 SUBJECTIVE: The patient's case was discussed with staff. She has no new complaint. OBJECTIVE: The patient denies intent to harm herself or others. She is calmer since the patient was started on Xanax a higher dose. She will be monitored for clinical changes. TRANSINT:[id number] Voice Confirmation ID: [id number] DOCUMENT ID: [id number] STEPHAN DILL MD at 1606 CC: [id number] DICTATION DATE: 02/08/19 1035 SURFACE SUPERVISOR: 02/08/19 1044 ADM IN [address] [address]
[2019-02-09 20:23] VITALS: BP 201/72
--- NOTE | 2019-02-10 00:10 | NUR ---
REC'D PATIENT SITTING IN THE DAYROOM. ALERT AND ORIENTED. INTERACTIVE WITH STAFF AND PEERS. ADMINISTER MEDS AND MONITOR COMPLIANCE. MONITOR FOR AGGRESSIVE BEHAVIOR AND REDIRECT NEEDED. PT TOOK HER BENICAR AND PLAVIX BUT REFUSES HER KLONOPIN RELATING SHE DOES NOT LIKE THE WAY IT MAKES HER FEEL SHE WANTS TO SLEEP ALL THE TIME AND REFUSED HER LIPITOR RELATING SHE HAS MS AND IT WAS DESTROYING HER MUSCLES IN HER LEGS. PT HAS BEEN PLEASANT AND NO AGGRESSION HAS BEEN NOTED. CONTINUE POC AND PROVIDE SAFE ENVIRONMENT.
[2019-02-10 02:03] VITALS: BP 176/51
[2019-02-10 05:50] VITALS: BP 148/68
--- NOTE | 2019-02-10 07:39 | NUR ---
REC'D PT SITTING AND AWAITING BREAKFAST. NO ACUTE DISTRESS NOTED. PT MAKE NEEDS KNOWN. PT IS ALERT AND ORIENTED 3X. MONITOR FOR AGGRESSIVE BEHAVIOR. NO AGRESSIVE BEHAVIOR NOTED PER PREVIOUS SHIFT. PT INTERACTS WELL WITH PEERS AND STAFF. COMPLIANT WITH VITALS AND ASSESSMENT. AMBULATES. WILL CONT PLAN OF CARE.
[2019-02-10 08:26] VITALS: BP 102/68; BP 116/70
--- NOTE | 2019-02-10 09:09 | NUR ---
PATIENT REFUSED MEDS STATING "THEY CHANGE MY MEDICATIONS TILL I DONT KNOW WHAT I TAKE." NURSE EXPLAINED WHAT THE MEDICATION WAS FOR AND PATIENT STATED I TOLD HIM TO TAKE ME OFF OF THAT CAUSE IT DIDN'T WORK." NURSE SAID OKAY. BUT KEEP IN MIND REFUSING MEDICATIONS DOES NOT HELP WITH DISCHARGE. PT STATED " I DON'T GIVE A DAMN ABOUT WHAT HE WANTS ME TO TAKE. THEY CAN KEEP ME HERE TILL DOOMSDAY." NURSE ATTEMPTED TO EXPLAIN AND PATIENT STATED "I DONT CARE WHAT HE WANTS."
--- NOTE | 2019-02-10 11:48 | PN ---
PATIENT:ALEN BUENO MEDICAL RECORD: [id number] LOCATION:[facility] ADMISSION DATE: 01/21/19 PROGRESS NOTE DATE OF SERVICE: SUBJECTIVE: The patient's case was discussed with staff. She has no new complaint. OBJECTIVE: The patient is angry and crying and saying she is going to . She is not saying she wants to kill herself. She is saying she is going to if I send her back to the detention. Unfortunately, I have explained the situation to her in full, but at every point, she argues with me as though I have the ability to change the circumstances and telling her that I do not have the ability to change the circumstances does not seem to help at all. ASSESSMENT: Dementia. PLAN: The patient is going to be given a dose of Klonopin 3 times a day. I am going to discontinue her Xanax. She does not want to take the antidepressant medication and insists that it makes her sleepy, which is absurd, but I will take her off of it at her request. She feels the same way about the Neurontin, which again is absurd, but I will discontinue it at her request. Her circumstances are this, she is under the care of adult protective services. She has been to court and a roofing laborer has ordered this. I do not know the circumstances in detail that led to this, but those are the facts, she has a guardian and the guardian is her fur vault attendant from [facility] until the roofing laborer changes that. She wants to live with her family and particularly a family in another state, but the adult protective services fur vault attendant says none of her family wants her to live with them. In fact, they do not want anything to do with her, not even interested in updates in her condition. I have not given all of that information except to say that it is not possible for her to live with her family and I saw no need to tell her that they do not want her to live there, but that is the fact. She is living in a behavioral detention, which she dislikes intensely and I suspect it probably is loud and more disruptive than the typical detention, but again she was in the [facility], which is nice as far as nursing homes go, but her behaviors there got her kicked out, that is according to the adult protective services fur vault attendant. All that the patient can say is the lead case manager is a liar and a bitch and does not tell the truth about anything and is out to get her. The situation is sad. She has no options. She is under the custody of the state. I am going to give her a fairly strong dose of Klonopin to help calm her, but we will taper it off over the next couple of days to a lower dose that hopefully will help her not be quite so anxious. I have weighed the relative risks and benefits of this, I am aware of the negative effects of benzodiazepines in the elderly, but it is also quite a stress on an 89-year-old cardiovascular system to be this upset and that is not to include into the fact during the emotional distress that this poor woman is in. At this point, she is going to be discharged back to the [facility] half-way when her care here is completed. TRANSINT:[id number] Voice Confirmation ID: [id number] DOCUMENT ID: [id number] PROGRESS NOTE [id number] ALEN BUENO PETER MD at 1148 CC: [id number] DICTATION DATE: 02/09/19 170 HOSPITAL WARD CLERK: 02/09/192023 ADM IN [facility] [address] [place] [address]
[2019-02-10 12:09] VITALS: BP 184/62
[2019-02-10 18:18] VITALS: BP 174/54
[2019-02-10 20:00] VITALS: BP 190/47
--- NOTE | 2019-02-10 22:01 | NUR ---
PATIENT IS ALERT AND ORIENTED, SOMEWHAT DEMANDING, SHE HAS A LOT OF VARIOUS COMPLAINTS, SHE "PICKS APART" HER MEDS AND SAYS THE SAME THING OVER AND OVER TO WHY SHE DOESN'T WANT TO TAKE CERTAIN MEDS. SHE IS OFFENDED VERY EASILY. WILL FOLLOW POC
[2019-02-11 06:00] VITALS: BP 211/83
--- NOTE | 2019-02-11 07:10 | NUR ---
PT AT THE NURSES STATION STATING IF ONE OF THE MHT COMES IN HERE ROOM TRYING TO GET HER UP SHE WAS GOING TO BE IN BIG TROUBLE. PT WALKED BACK INTO ROOM. PT IS ALERT AND ORIENTED TO PERSON, PLACE AND TIME. DISORIENTED TO SITUTION. PT CAN MAKE NEEDS KNOWN. WILL CONT PLAN OF CARE.
--- NOTE | 2019-02-11 09:03 | NUR ---
pt stated the clonazepam does not work. i have ask him and asked him to stop it. it makes me nervous" and pt inquired about xanax. nurse explained the doctor stopped the xanax and started the clonzepam back. pt stated she didnt say that. nurse explained she was unaware of why the med changed happened.
[2019-02-11 10:36] VITALS: BP 156/70
--- NOTE | 2019-02-11 11:32 | NUR ---
PT STATED TO OTHER NURSE WE WON'T HELP HER. THE DOCTOR LISTEN TO ME. THE ONLY THING THAT HELPED ME WAS THE XANAX AND THE DOCTOR TOOK THAT FROM ME." PT ASKED MHT FOR SOMETHING FOR HER NERVES. THIS NURSE ASKED WHAT THE REASON FOR HER NERVE PROBLEM. PT STATED IF I KNEW I'D BE A GENIUS." NURSE STATED WELL IT'S YOUR BODY. WHATS WRONG?" PT STATED "MY STOMACH IS CHURNING, I'M A NERVOUS WRECK AND I DID NOT EAT NOTHING FOR BREAKFAST." NURSE ATTEMPTED TO EXPLAIN WHY IT WOULD BE BETTER TO HAVE SOMETHING ON HER STOMACH BEFORE TAKING SOME ATIVAN. PT TOLD THE NURSE TO GO TO HEL AND WALKED OFF. NURSE WILL OFFER PT SOMETHING FOR HER NERVES WHEN SHE EATS A BIT OF LUNCH.
[2019-02-11 12:24] VITALS: BP 180/80
--- NOTE | 2019-02-11 12:24 | NUR ---
NURSE ASKED PT TO EAT A BIT OF LUNCH SO SHE COULD HAVE A ATIVAN FOF HER NERVES. PT REFUSED TO EAT ANYTHING STATING SHE COULDN'T AND EVEN IF SHE DID WE WOULDN'T GIVE HER ANYTHING. NURSE TOOK BLOOD PRESSURE 180/80. PT IS CRYING UNABLE TO REDIRECT. WILL ADMINISTER ATIVAN 0.5 MG PO FOR ANXIETY. STAFF REPORTED THAT PT DID EAT BREAKFAST. PT TOLD THIS NURSE SHE COULDN'T. WILL CONT TO MONITOR.
--- NOTE | 2019-02-11 13:21 | PN ---
PATIENT:ALEN BUENO MEDICAL RECORD: [id number] LOCATION:[facility] ADMISSION DATE: 01/21/19 PROGRESS NOTE DATE OF SERVICE: 02/10/2019 SUBJECTIVE: The patient's case was discussed with staff. She has no new complaint. OBJECTIVE: The patient is angry and agitated. She is angry and agitated about adult protective services having custody of her and even though I have explained to her I cannot correct this, she still is expecting me to do so. ASSESSMENT: Dementia. PLAN: Current medicines have been reviewed. She is refusing her Klonopin. That is perfectly fine. I am going to continue offering it to her on a scheduled basis. TRANSINT:[id number] Voice Confirmation ID: [id number] DOCUMENT ID: [id number] STEPHAN DILL MD at 1321 CC: [id number] DICTATION DATE: 02/10/19 1158 SALES DEVELOPMENT SPECIALIST: 02/10/19 1303 ADM IN [place] [id number] [place] [address]
[2019-02-11 19:00] VITALS: BP 182/74
--- NOTE | 2019-02-11 19:44 | NUR ---
RECEIVED IN HALLWAY OUTSIDE OF NURSES STATION. SOCIALIZING WITH PEERS AND STAFF. CALM AND COOPERATIVE WITH CARE AND ASSESSMENT. NO SIGNS OF AGGRESSION. REDIERCT AND REORIENT NEEDED. ENCOURAGE TO EXPRESS NEEDS. RESTING IN BEDROOM WITH EYES OPEN AT THIS TIME. CONTINUE PLAN OF CARE
[2019-02-12 00:53] VITALS: BP 160/78
[2019-02-12 06:21] VITALS: BP 178/80
[2019-02-12 08:18] VITALS: BP 150/72; BP 170/80
--- NOTE | 2019-02-12 11:30 | NUR ---
PATIENT IS AWAKE AND ORIENTED. SHE IS CALM AND COOPERATIVE WITH CARE AND ASSESSMENT. NO BEHAVIORS NOTED. MEDICATION COMPLIANT. REDIRECT AND REORIENT NEEDED. CCONTINUE PLAN OF CARE.
[2019-02-12 12:00] VITALS: BP 120/80
--- NOTE | 2019-02-12 12:29 | PN ---
PATIENT:ALEN BUENO MEDICAL RECORD: [id number] LOCATION:FIDELINA [facility]113 ADMISSION DATE: 01/21/19 PROGRESS NOTE DATE OF SERVICE: 02/11/2019 SUBJECTIVE: The patient's case was discussed with staff. She has no new complaint. OBJECTIVE: She does not like Lipitor and does not want to take it. I will discontinue it. She does not like Klonopin and does not want to take it. I would discontinue it as well. She does like Xanax and would like me to prescribe that. I will do so even though I think Klonopin would work better for her situation, but she has lost so much control of her world and environment that I would like for her to have some semblance of control. For this reason, I will prescribe the Xanax for her. TRANSINT:[id number] Voice Confirmation ID: [id number] DOCUMENT ID: [id number] STEPHAN DILL MD at 1229 CC: [id number] DICTATION DATE: 02/11/19 1348 CPAS: 02/11/192016 ADM IN [facility] [address] [place] [address]
[2019-02-12 17:18] VITALS: BP 120/100
--- NOTE | 2019-02-12 20:32 | NUR ---
RECEIVED IN DINING ROOM AREA. CALM AND COOPERATIVE WITH CARE AND ASSESSMENT. NO SIGNS OF AGGRESSION. IN GOOD SPIRITS. ENCOURAGE TO EXPRESS NEEDS. WALKING AROUND SOCIALIZING WITH STAFF AT THIS TIME. CONTINUE PLAN OF CARE.
[2019-02-12 22:02] VITALS: BP 166/82; BP 181/78
[2019-02-13 02:00] VITALS: BP 140/88
[2019-02-13 07:03] VITALS: BP 190/60
[2019-02-13 08:00] VITALS: BP 130/80
--- NOTE | 2019-02-13 11:02 | NUR ---
RECEIVED PATIENT IN DINING ROOM FOR B'FAST, ALERT, CALM, BLUNTED, NO AGGRESSION NOTED. MEDS ADMIN PER ORDERS WITH COMPLETE MED COMPLIANCE NOTED. FREQUENTLY COMPLAINS ABOUT FIRST ONE THING, THEN THE OTHER. HOWEVER, PATIENT IS COOPERATIVE. CONT POC DIRECTED.
--- NOTE | 2019-02-13 12:41 | PN ---
PATIENT:ALEN BUENO MEDICAL RECORD: [id number] LOCATION:[facility] ADMISSION DATE: 01/21/19 PROGRESS NOTE DATE OF SERVICE: 02/12/2019 SUBJECTIVE: The patient's case was discussed with staff. She has no new complaint. OBJECTIVE: The patient denies intent to harm herself or others. She is tolerating her medicines well. She refuses to take medicines except Xanax. ASSESSMENT: Dementia. PLAN: The patient is at or near her baseline level of functioning. I plan to maintain her on current medications and we will discuss with the treatment team her return to the snf soon. TRANSINT:[id number] Voice Confirmation ID: [id number] DOCUMENT ID: [id number] STEPHAN DILL MD at 1241 CC: [id number] DICTATION DATE: 02/12/19 1320 PROFESSOR OF HISTORY: 02/12/19 1712 ADM IN [id number] [place] [address]
--- NOTE | 2019-02-13 13:45 | NUR ---
PATIENT QUITE BELLIGERANT, REFUSING ONE-TIME DOSE OF HALDOL. WILL ATTEMPT TO ADMIN WHEN MOOD IMPROVES.
[2019-02-13 14:00] VITALS: BP 183/71
--- NOTE | 2019-02-13 14:24 | NUR ---
Nutrition Follow-up: Diet: Regular PO intake: ~44% average x last 9 meals Last BM: 02/10/19. Wt: 113# (02/11/19); Admit wt: 106# (01/22/19) Meds reviewed, no new labs. Noted PO intake is down some. Consider increase in bowel regimen. Hopefully appetite will improve with BM regularity. Will add Ensure TID. Continue current diet. RD Following.
--- NOTE | 2019-02-13 19:57 | NUR ---
RECEIVED IN DAYROOM. SITTING IN A RECLINING CHAIR WITH PEERS AT HER SIDE. SOCIAL AT TIMES. CALM AND COOPERATIVE WITH CARE AND ASSESSMENT. NO SIGNS OF AGGRESSION. REDIRECT AND REORIENT NEEDED. CONTINUES TO SIT CALMLY IN DAYROOM. CONTINUE PLAN OF CARE
[2019-02-13 20:53] VITALS: BP 172/70
[2019-02-13 22:55] VITALS: BP 142/76; BP 172/70
[2019-02-14 07:00] VITALS: BP 159/54
[2019-02-14 08:00] VITALS: BP 123/63
[2019-02-14 13:00] VITALS: BP 179/47
--- NOTE | 2019-02-14 15:58 | PN ---
PATIENT:ALEN BUENO MEDICAL RECORD: [id number] LOCATION:[facility] ADMISSION DATE: 01/21/19 PROGRESS NOTE DATE OF SERVICE: 02/13/2019 SUBJECTIVE: The patient's case was discussed with staff. She has no new complaint. OBJECTIVE: The patient is agitated. She is disruptive. She is tearful. She is attention-seeking. She has been here for 3 weeks. I have tried her on various medications, none of which have had an opportunity to be effective. She is not allowing me to treat her with medications that I think would be helpful, yet her behaviors make her unmanageable at the intermediate. ASSESSMENT: Dementia. PLAN: The patient is going to be given a 1 time injection of Haldol to assist with her agitation. In fairness to her, there is another patient on the unit who has been quite agitated and calling people a lot of names today and has gotten her pretty upset. I must also say though that she is not letting me treat her with medications and that there are events at the intermediate where if someone becomes agitated or upset to, so it is not something that is unique to this environment. I am going to give her a Haldol injection. She has had these before and I am going to consider giving her long-acting injection as part of my attempt to manage her. TRANSINT:[id number] Voice Confirmation ID: [id number] DOCUMENT ID: [id number] STEPHAN DILL MD at 1558 CC: [id number] DICTATION DATE: 02/13/19 1256 PLASTIC TOP ASSEMBLER: 02/13/19 1429 ADM IN [id number] [place] [address]
--- NOTE | 2019-02-14 17:45 | NUR ---
PATIENT DROWSY THIS SHIFT, TESTY MOOD. MED COMPLIANT. COOPERATIVE, NO AGGRESSION. STILL SOMEWHAT PARANOID IN THOUGHT PROCESS. CONT POC DIRECTED.
[2019-02-14 20:30] VITALS: BP 160/90
--- NOTE | 2019-02-15 00:02 | NUR ---
PATIENT IS ORIENTED AND ALERT, CAN MAKE ALL NEEDS KNOWN, COMPLIANT WITH MEDS. NOT AGITATED THIS EVENING NORMAL. WILL FOLLOW POC
[2019-02-15 01:00] VITALS: BP 164/68
[2019-02-15 06:23] VITALS: BP 158/64
[2019-02-15 08:51] VITALS: BP 150/54
--- NOTE | 2019-02-15 13:43 | NUR ---
Nutrition Follow-up: Diet: Regular + Ensure TID PO intake: ~47% average x last 9 meals Last BM: 02/10/19 x 5 days now. Wt: 113# (02/11/19); Admit wt: 106# (01/22/19) Meds reviewed, no new labs. Continue current nutrition regimen. Encourage PO intake. RD following.
--- NOTE | 2019-02-15 14:34 | PN ---
PATIENT:ALEN BUENO MEDICAL RECORD: [id number] LOCATION:[facility] ADMISSION DATE: 01/21/19 PROGRESS NOTE DATE OF SERVICE: 02/14/2019 SUBJECTIVE: The patient's case was discussed with staff. She has no new complaint. OBJECTIVE: The patient received a Haldol Decanoate shot yesterday. She is better today. She is less anxious. She is more redirectable. She is more cooperative. If this continues for another day, perhaps 2 at the most, I will transition her back to the intermediate. TRANSINT:[id number] Voice Confirmation ID: [id number] DOCUMENT ID: [id number] STEPHAN DILL MD at 1434 CC: [id number] DICTATION DATE: 02/14/19 1643 ELECTRIC SIGN WIRER: 02/15/19 0022 ADM IN [facility] [address] [id number]
[2019-02-15] MEDS ORDERED: LISINOPRIL10 MG PO (17:39)
[2019-02-15] MEDS ORDERED: BENICAR5 MG PO (17:40)
[2019-02-15] MEDS ORDERED: LOPRESSOR25 MG PO (17:40)
[2019-02-15] MEDS ORDERED: XANAX0.25 MG PO (17:41)
[2019-02-15] MEDS ORDERED: VISINE15 ML EACH EYE (17:42)
[2019-02-15] MEDS ORDERED: ANUSOL-HC 2.5%30 GM TOPICAL (17:43)
[2019-02-15] MEDS ORDERED: VITAMIN B-121000 MCG PO (17:43)
[2019-02-15 20:20] VITALS: BP 180/60
--- NOTE | 2019-02-15 23:28 | NUR ---
B) Patient is alert and oriented to person, place and time, calm and cooperative, anxious to go home I) Administered scheduled medications as ordered, assisted with needs, R) mediation compliant, self care, ADL independant P) Continue plan of care.
[2019-02-16 09:31] VITALS: BP 111/60; BP 171/60
--- NOTE | 2019-02-16 11:25 | NUR ---
PT IS PARTICIPATING IN GROUP. PT IS ALERT, ORIENTED TO PERSON, TIME AND PLACE. PT HAS BEEN FRIENDLY WITH STAFF AND PEERS. PT IS COMPLIANT WITH MEDS, ASSESSMENTS AND VITALS. PT IS ANXIOUS TO DISCHARGE THIS SHIFT. NO BEHAVIORS REPORTED FROM [facility]VAGE DIVER. NO BEHAVIORS NOTED SO FAR. PT AMBULATES. WILL CONT PLAN OF CARE.
--- NOTE | 2019-02-16 15:57 | PN ---
PATIENT:ALEN BUENO MEDICAL RECORD: [id number] LOCATION:[facility] ADMISSION DATE: 01/21/19 PROGRESS NOTE DATE OF SERVICE: 02/15/2019 SUBJECTIVE: The patient's case was discussed with staff. She has no new complaint. OBJECTIVE: The patient is in good behavioral control with poor insight about her condition. ASSESSMENT: Dementia. PLAN: The patient is going to be transitioned out of the hospital tomorrow. She will go to the long-term. Her long-term prognosis is guarded. TRANSINT:[id number] Voice Confirmation ID: [id number] DOCUMENT ID: [id number] STEPHAN DILL MD at 1557 CC: [id number] DICTATION DATE: 02/15/19 173 CHEMICAL ETCHING PROCESSOR: 02/15/19 1845 ADM IN [facility] [address] [place] [address]
[2019-02-16 16:20] VITALS: BP 200/70
[2019-02-16 16:25] VITALS: BP 200/70
--- NOTE | 2019-02-16 16:34 | NUR ---
PATIENT DISCHARGED TO TO [facility] TO MEET THE [facility] IN [place]. ALL OF PT BELONGINGS SENT WITH PT AND FACILITY. BELONGINGS SHEET COPIED AND SENT WITH PAPERWORK WITH PT. PT IS STABLE AT TIME OF DISCHARGE. 1630 MEDICATIONS GIVEN AND BLOOD PRESSURE TAKEN. PT WAS A BIT HESTIANT WITH LEAVING AT FIRST. NURSE AND AID ENSURED HER OF LEAVING. PT AMBULATED TO FACILITY [facility]. ALL PAPERWORK FAXED WITH [facility].
--- NOTE | 2019-02-17 12:38 | PN ---
PATIENT:ALEN BUENO MEDICAL RECORD: [id number] LOCATION:[facility] ADMISSION DATE: 01/21/19 PROGRESS NOTE DATE OF SERVICE: 02/16/2019 SUBJECTIVE: The patient's case was discussed with staff. She has no new complaint. OBJECTIVE: The patient is much calmer since receiving the long-acting injection. She has not been agitated or disruptive in any significant way for 2 days now. I anticipate she could be transitioned out of the hospital soon. TRANSINT:[id number] Voice Confirmation ID: [id number] DOCUMENT ID: [id number] STEPHAN DILL MD at 1238 CC: [id number] DICTATION DATE: 02/16/19 162 FORMULA TECHNICIAN: 02/16/192025 DIS IN 02/16/19 [facility] [address] [place] [address]
== END 2019-02-16 16:40 | DRG 57 ==
LOC: D.PSYCH 17:45
PROVIDERS: Family Medicine; ADMIT Psychiatry & Neurology Psychiatry; ATTEND Psychiatry & Neurology Psychiatry
DX: G30.9 Alzheimer's disease, unspecified (principal); F02.81 Dementia in other diseases classified elsewhere, unspecified severity, with behavioral disturbance; B02.29 Other postherpetic nervous system involvement; I25.10 Atherosclerotic heart disease of native coronary artery without angina pectoris; Z85.3 Personal history of malignant neoplasm of breast; F41.9 Anxiety disorder, unspecified; E78.5 Hyperlipidemia, unspecified; E03.9 Hypothyroidism, unspecified; D64.9 Anemia, unspecified; H26.9 Unspecified cataract; I12.9 Hypertensive chronic kidney disease with stage 1 through stage 4 chronic kidney disease, or unspecified chronic kidney disease; N18.2 Chronic kidney disease, stage 2 (mild); F32.9 Major depressive disorder, single episode, unspecified